=== PATIENT | male | born 1950 | race Caucasian/White ===

== ENCOUNTER 2018-02-27 07:52 | Emergency (ER) | payer MEDICARE, OTHER ==
[~2018-02-27] VITALS: Ht 175.3 cm; Wt 59.0 kg
[2018-02-27] MEDS ORDERED: CARV3 PO (08:34)
[2018-02-27] MEDS ORDERED: AMLO-511 PO (08:34)
[2018-02-27] MEDS ORDERED: KETOROLAC TROMETHAMINE 60 MG/2 ML VIAL IM ONE (10:30)
[2018-02-27 11:35] VITALS: BP 152/80
== END 2018-02-27 12:43 | disposition home or self-care (01) ==
LOC: EMS 07:53
DX: S70.01XA Contusion of right hip, initial encounter (principal); I10 Essential (primary) hypertension; F12.90 Cannabis use, unspecified, uncomplicated; W19.XXXA Unspecified fall, initial encounter; Y93.89 Activity, other specified; Y92.89 Other specified places as the place of occurrence of the external cause; Y99.8 Other external cause status
CPT/HCPCS: 73521; 96372; 99283; J1885

== ENCOUNTER 2024-03-18 10:35 | Inpatient (IN) | payer MEDICARE, MEDICAID ==
[~2024-03-18] VITALS: Ht 172.7 cm; Wt 61.1 kg
[~2024-03-18 10:35] MED LIST: AMLO-257 PO; CARV3 PO
[2024-03-18] MEDS: AMIODARONE HCL 50 MG/ML 3 ML VIAL IVP ONE (10:58)
[2024-03-18 11:11] LABS: HEMATOCRIT 33.6 % (41-53); HEMOGLOBIN 10.4 g/dL (13.5-17.5); MEAN CORPUSCULAR HEMOGLOBIN 27.6 pg (26.0-34.0); MEAN CORPUSCULAR HGB CONC 30.9 G/dL (31.0-37.0); MEAN CORPUSCULAR VOLUME 89 fL (80-100); PLATELET COUNT (AUTO) 570 K/uL (150-450); RED BLOOD CELL COUNT(AUTO) 3.76 MIL/uL (4.50-5.90); RED CELL DISTRIBUTION WIDTH 17.1 % (11.5-14.5)
[2024-03-18 11:19] LABS: CALCIUM, TOTAL 8.8 mg/dL (8.8-10.5); CREATININE 2.15 mg/dL (0.60-1.30); POTASSIUM 3.6 mmol/L (3.5-5.1)
[2024-03-18 11:23] LABS: WHITE BLOOD COUNT (AUTO) 42.7 K/uL (4.5-11.0)
[2024-03-18 11:30] LABS: TROPONIN I-HIGH SENSITIVITY 14 ng/L (<76)
[2024-03-18] MEDS: AMIODARONE HCL 360 MG in DEXTROSE 5%-WATER 242.8 ML IV ONE (11:31)
[2024-03-18 12:10] LABS: BAND NEUTROPHILS % (MANUAL) 3 % (0-5); LYMPHOCYTES % (MANUAL) 2 % (22-44); MONOCYTES % (MANUAL) 4 % (2-9); SEGMENTED NEUTROPHILS % 91 % (40-70); TOTAL CELLS COUNTED 100
[2024-03-18 12:11] LABS: RBC MORPHOLOGY COMMENT ABNORMAL R
[2024-03-18] MEDS: VANCOMYCIN 1.5 GM/WATER(PEG) 300 ML IV ONE (12:40)
[2024-03-18] MEDS ORDERED: ZOLPIDEM TARTRATE 5 MG TABLET PO PRN (16:00)
[2024-03-18] MEDS ORDERED: MAGNESIUM HYDROXIDE SUSPENSION 30 ML UDCUP PO PRN (16:00)
[2024-03-18] MEDS ORDERED: ONDANSETRON HCL 4 MG/2 ML VIAL IVP PRN (16:00)
[2024-03-18] MEDS ORDERED: BISACODYL 10 MG RECTAL RECTAL SUPPOSITORY PR PRN (16:00)
[2024-03-18] MEDS: SODIUM CHLORIDE 0.9% 2,100 ML IV ONE (16:24)
[2024-03-18] MEDS: HEPARIN SODIUM,PORCINE 5,000 UNITS/ML VIAL SQ SCH (16:24)
[2024-03-18 16:53] LABS: PROTHROMBIN TIME 13.9 SEC (9.4-11.6)
[2024-03-18 16:55] LABS: ALBUMIN 1.8 g/dL (3.4-5.0); BILIRUBIN,DIRECT 0.4 mg/dL (0.00-0.20); BILIRUBIN,TOTAL 0.8 mg/dL (0.1-1.0); TOTAL PROTEIN, SERUM 8.2 g/dL (6.4-8.2)
[2024-03-18 17:00] LABS: LACTIC ACID 1.2 mmol/L (0.4-2.0)
[2024-03-18] MEDS: PIPERACILLIN/TAZO 3.375 GM/D5W 50 ML IV ONE (17:04)
[2024-03-18] MEDS: MORPHINE SULFATE 2 MG/ML SYRINGE IVP PRN (17:04)
[2024-03-18] MEDS: CLINDAMYCIN 900 MG/D5% WATER 50 ML IV SCH (17:07)
[2024-03-18] MEDS: AMIODARONE HCL 540 MG in DEXTROSE 5%-WATER 239.2 ML IV ONE (17:15)
[2024-03-18] MEDS: HYDROCODONE/ACETAMINOPHEN 5-325 MG TABLET PO PRN (17:38)
[2024-03-18] MEDS: SODIUM CHLORIDE 0.9% 500 ML IV ONE ×2 (18:35→19:30)
[2024-03-18] MEDS: PHENYLEPHRINE 200 MG/D5%-WATER 250 ML IV PRN (19:13)
[2024-03-18] MEDS ORDERED: METOPROLOL TARTRATE 25 MG TABLET PO SCH (21:00)
[2024-03-19] VITALS (8 sets, daily range): BP systolic 92–102; BP diastolic 53–63; PULSE 54–115; RESP 12–16; TEMP 97.6–98.1; O2SAT 91–98
[2024-03-19] MEDS: PIPERACILLIN SODIUM/TAZOBACTAM 2.25 GM in DEXTROSE 5%-WATER 50 ML IV SCH (00:34)
[2024-03-19] MEDS ORDERED: SODIUM CHLORIDE 0.9% 250 ML IV ONE (00:40)
[2024-03-19 07:06] LABS: HEMATOCRIT 25.7 % (41-53); HEMOGLOBIN 8.2 g/dL (13.5-17.5); MEAN CORPUSCULAR HEMOGLOBIN 28.3 pg (26.0-34.0); MEAN CORPUSCULAR HGB CONC 31.7 G/dL (31.0-37.0); MEAN CORPUSCULAR VOLUME 89 fL (80-100); PLATELET COUNT (AUTO) 609 K/uL (150-450); RED BLOOD CELL COUNT(AUTO) 2.88 MIL/uL (4.50-5.90); RED CELL DISTRIBUTION WIDTH 17.2 % (11.5-14.5)
[2024-03-19 07:14] LABS: TROPONIN I-HIGH SENSITIVITY 14 ng/L (<76)
[2024-03-19 07:19] LABS: CALCIUM, TOTAL 7.3 mg/dL (8.8-10.5); CREATININE 2.05 mg/dL (0.60-1.30); POTASSIUM 3.5 mmol/L (3.5-5.1); THYROID STIMULATING HORMONE 1.05 uIU/mL (0.36-3.74)
[2024-03-19 07:27] LABS: WHITE BLOOD COUNT (AUTO) 46.7 K/uL (4.5-11.0)
[2024-03-19 08:08] LABS: BAND NEUTROPHILS % (MANUAL) 12 % (0-5); EOSINOPHILS % (MANUAL) 2 % (1-6); LYMPHOCYTES % (MANUAL) 3 % (22-44); MONOCYTES % (MANUAL) 4 % (2-9); SEGMENTED NEUTROPHILS % 79 % (40-70); TOTAL CELLS COUNTED 100
[2024-03-19 08:10] LABS: RBC MORPHOLOGY COMMENT ABNORMAL RBC MORPH
[2024-03-19 08:11] LABS: PLATELET MORPHOLOGY COMMENT LARGE PLTS PRESENT
[2024-03-19] MEDS: PANTOPRAZOLE SODIUM 40 MG DR TABLET PO SCH (08:23)
[2024-03-19] MEDS: VANCOMYCIN HCL 750 MG in DEXTROSE 5%-WATER 250 ML IV SCH (08:23)
[2024-03-19] MEDS: SODIUM CHLORIDE 0.9% 1,000 ML IV SCH (08:42)
[2024-03-19] MEDS: MIDODRINE HCL 5 MG TABLET PO SCH (09:11)
[2024-03-19] MEDS ORDERED: HEPARIN SODIUM,PORCINE 5,000 UNITS/ML VIAL IVP PRN (09:15)
[2024-03-19 10:16] LABS: BASOPHILS % (AUTO) 0.2 % (0.0-2.0); EOSINOPHILS % (AUTO) 0.4 % (1.0-6.0); HEMOGLOBIN 9.3 g/dL (13.5-17.5); LYMPHOCYTES # (AUTO) 0.8 K/uL (1.0-4.8); LYMPHOCYTES % (AUTO) 1.9 % (22.0-44.0); MEAN CORPUSCULAR HEMOGLOBIN 28.3 pg (26.0-34.0); MEAN CORPUSCULAR VOLUME 91 fL (80-100); MONOCYTES # (AUTO) 1.9 K/uL (0.1-1.0); MONOCYTES % (AUTO) 4.3 % (2.0-9.0); NEUTROPHILS # (AUTO) 41.3 K/uL (1.8-7.7); PLATELET COUNT (AUTO) 632 K/uL (150-450); RED BLOOD CELL COUNT(AUTO) 3.28 MIL/uL (4.50-5.90); RED CELL DISTRIBUTION WIDTH 17.8 % (11.5-14.5)
[2024-03-19 10:21] LABS: NEUTROPHILS % (AUTO) 93.2 % (40.0-70.0); WHITE BLOOD COUNT (AUTO) 44.3 K/uL (4.5-11.0)
[2024-03-19] MEDS: HEPARIN SODIUM 25000 UNITS/D5W 250 ML IV PRN (10:22)
[2024-03-19 10:28] LABS: APPEARANCE,URINE HAZY (CLEAR); BILIRUBIN,URINE NEGATIVE (NEGATIVE); COLOR,URINE YELLOW (YELLOW); GLUCOSE, URINE (UA) NEGATIVE (NEGATIVE); KETONES,URINE NEGATIVE (NEGATIVE); LEUKOCYTE ESTERASE ,URINE NEGATIVE (NEGATIVE); NITRATE,URINE NEGATIVE (NEGATIVE); OCCULT BLOOD,URINE NEGATIVE (NEGATIVE); PH,URINE 5.5 (5.0-8.0); PROTEIN,URINE 30-70 mg/dL (NEGATIVE)
[2024-03-19] MEDS: AMIODARONE HCL 750 MG in DEXTROSE 5%-WATER 485 ML IV SCH (11:50)
[2024-03-19] MEDS ORDERED: SODIUM CHLORIDE 0.9% 1,000 ML IV SCH (13:00)
[2024-03-19] MEDS: ALBUMIN HUMAN 25%-25GM/100ML 100 ML IV SCH (14:02)
[2024-03-19 14:57] LABS: APPEARANCE,URINE HAZY (CLEAR); BILIRUBIN,URINE NEGATIVE (NEGATIVE); COLOR,URINE YELLOW (YELLOW); GLUCOSE, URINE (UA) NEGATIVE (NEGATIVE); KETONES,URINE NEGATIVE (NEGATIVE); LEUKOCYTE ESTERASE ,URINE SMALL (NEGATIVE); NITRATE,URINE NEGATIVE (NEGATIVE); OCCULT BLOOD,URINE TRACE (NEGATIVE); PROTEIN,URINE 30-70 mg/dL (NEGATIVE)
[2024-03-19 14:59] LABS: CREATININE,URINE RANDOM 149.8 mg/dL (30.0-125.0)
[2024-03-19 15:13] LABS: BACTERIA,URINE Few /HPF (None Seen); SQUAMOUS EPITHELIAL CELL,UR Few /LPF (None Seen)
[2024-03-19] MEDS: TAMSULOSIN HCL 0.4 MG CAPSULE PO SCH (17:00)
[2024-03-19] MEDS: PredniSONE 20 MG TABLET PO SCH (17:20)
[2024-03-19] MEDS: HEPARIN SODIUM,PORCINE 5,000 UNITS/ML VIAL IVP PRN (17:22)
[2024-03-19] MEDS: AMIODARONE HCL 200 MG TABLET PO SCH (21:14)
[2024-03-20] VITALS (9 sets, daily range): BP systolic 98–118; BP diastolic 54–73; PULSE 55–77; RESP 10–18; TEMP 97.5–97.9; O2SAT 93–99
[2024-03-20 06:15] LABS: HEMATOCRIT 23.5 % (41-53); HEMOGLOBIN 7.4 g/dL (13.5-17.5); MEAN CORPUSCULAR HEMOGLOBIN 28.4 pg (26.0-34.0); MEAN CORPUSCULAR HGB CONC 31.5 G/dL (31.0-37.0); MEAN CORPUSCULAR VOLUME 90 fL (80-100); PLATELET COUNT (AUTO) 385 K/uL (150-450); RED BLOOD CELL COUNT(AUTO) 2.61 MIL/uL (4.50-5.90); RED CELL DISTRIBUTION WIDTH 17.7 % (11.5-14.5); WHITE BLOOD COUNT (AUTO) 27.2 K/uL (4.5-11.0)
[2024-03-20 06:36] LABS: ALBUMIN 2.2 g/dL (3.4-5.0); BILIRUBIN,TOTAL 1.6 mg/dL (0.1-1.0); CALCIUM, TOTAL 7.2 mg/dL (8.8-10.5); CREATININE 2.71 mg/dL (0.60-1.30); MAGNESIUM 1.3 mg/dL (1.80-2.40); POTASSIUM 3.9 mmol/L (3.5-5.1); TOTAL PROTEIN, SERUM 6.7 g/dL (6.4-8.2)
[2024-03-20 07:01] LABS: BAND NEUTROPHILS % (MANUAL) 7 % (0-5); LYMPHOCYTES % (MANUAL) 2 % (22-44); MONOCYTES % (MANUAL) 4 % (2-9); SEGMENTED NEUTROPHILS % 87 % (40-70); TOTAL CELLS COUNTED 100
[2024-03-20] MEDS: VANCOMYCIN 500 MG/WATER(PEG) 100 ML IV SCH (08:18)
[2024-03-20] MEDS: ETHYL ALCOHOL 62% ANTISEPTIC NASAL SANITIZER 0.6 ML AMPUL NASAL SCH (08:18)
[2024-03-20] MEDS: AMIODARONE HCL 200 MG TABLET PO SCH (08:19)
[2024-03-20] MEDS: HEPARIN SODIUM,PORCINE 5,000 UNITS/ML VIAL SQ SCH (16:29)
[2024-03-20 18:27] LABS: TROPONIN I-HIGH SENSITIVITY 20 ng/L (<76)
[2024-03-21] VITALS (14 sets, daily range): BP systolic 129–150; BP diastolic 66–86; PULSE 62–72; RESP 12–24; TEMP 97.7–98.2; O2SAT 93–98
[2024-03-21 06:00] LABS: ALANINE AMINOTRANSFERASE 23 U/L (12-78); ALKALINE PHOSPHATASE 510 U/L (46-116); ANION GAP 22 mmol/L (8-16); ASPARTATE AMINOTRANSFERASE 58 U/L (15-37); BILIRUBIN,TOTAL 1.7 mg/dL (0.1-1.0); CALCIUM, TOTAL 7.6 mg/dL (8.8-10.5); CARBON DIOXIDE 16 mmol/L (22-29); CHLORIDE 99 mmol/L (98-107); CREATININE 3.31 mg/dL (0.60-1.30); GLOMERULAR FILTR. RATE CALC 18 mL/min (>60); GLUCOSE,RANDOM 136 mg/dL (70-110); POTASSIUM 3.8 mmol/L (3.5-5.1); SODIUM SERUM 137 mmol/L (136-145); TOTAL PROTEIN, SERUM 7.4 g/dL (6.4-8.2); UREA NITROGEN, BLOOD 64 mg/dL (7-18)
[2024-03-21 06:01] LABS: TROPONIN I-HIGH SENSITIVITY 30 ng/L (<76)
[2024-03-21 06:07] LABS: BASOPHILS % (AUTO) 0.2 % (0.0-2.0); EOSINOPHILS % (AUTO) 0 % (1.0-6.0); HEMATOCRIT 21.9 % (41-53); LYMPHOCYTES # (AUTO) 0.3 K/uL (1.0-4.8); MEAN CORPUSCULAR HEMOGLOBIN 27.9 pg (26.0-34.0); MEAN CORPUSCULAR HGB CONC 31.1 G/dL (31.0-37.0); MEAN CORPUSCULAR VOLUME 90 fL (80-100); MONOCYTES # (AUTO) 0.7 K/uL (0.1-1.0); MONOCYTES % (AUTO) 4.3 % (2.0-9.0); NEUTROPHILS # (AUTO) 15.9 K/uL (1.8-7.7); PLATELET COUNT (AUTO) 366 K/uL (150-450); RED BLOOD CELL COUNT(AUTO) 2.44 MIL/uL (4.50-5.90); RED CELL DISTRIBUTION WIDTH 18.4 % (11.5-14.5)
[2024-03-21 06:08] LABS: NEUTROPHILS % (AUTO) 93.5 % (40.0-70.0)
[2024-03-21 06:09] LABS: HEMOGLOBIN 6.8 g/dL (13.5-17.5)
[2024-03-21 06:30] LABS: C-REACTIVE PROTEIN QUANT 18.33 mg/dL (0.00-0.30); PHOSPHORUS 7.2 mg/dL (2.5-4.9)
[2024-03-21 06:35] LABS: VANCOMYCIN,RANDOM 19.6 mcg/mL (25.0-50.0)
[2024-03-21] MEDS ORDERED: VANCOMYCIN 1GM/WATER(PEG/NADA) 200 ML IV PRN (07:30)
[2024-03-21] MEDS: DOCUSATE SODIUM 100 MG CAPSULE PO SCH (13:10)
[2024-03-21] MEDS: SODIUM BICARBONATE 650 MG TABLET PO SCH (15:43)
[2024-03-21 16:03] LABS: BASOPHILS % (AUTO) 0.3 % (0.0-2.0); EOSINOPHILS % (AUTO) 0 % (1.0-6.0); HEMATOCRIT 25.9 % (41-53); HEMOGLOBIN 8.3 g/dL (13.5-17.5); LYMPHOCYTES # (AUTO) 0.3 K/uL (1.0-4.8); LYMPHOCYTES % (AUTO) 2.2 % (22.0-44.0); MEAN CORPUSCULAR HEMOGLOBIN 29.2 pg (26.0-34.0); MEAN CORPUSCULAR HGB CONC 32.2 G/dL (31.0-37.0); MEAN CORPUSCULAR VOLUME 91 fL (80-100); MONOCYTES # (AUTO) 0.8 K/uL (0.1-1.0); NEUTROPHILS # (AUTO) 14.7 K/uL (1.8-7.7); PLATELET COUNT (AUTO) 378 K/uL (150-450); RED BLOOD CELL COUNT(AUTO) 2.85 MIL/uL (4.50-5.90); RED CELL DISTRIBUTION WIDTH 17.3 % (11.5-14.5); WHITE BLOOD COUNT (AUTO) 15.9 K/uL (4.5-11.0)
[2024-03-21 16:04] LABS: NEUTROPHILS % (AUTO) 92.5 % (40.0-70.0)
[2024-03-21] MEDS: MORPHINE SULFATE 2 MG/ML SYRINGE IVP PRN (16:31)
[2024-03-21] MEDS: SEVELAMER CARBONATE 800 MG TABLET PO SCH (17:18)
[2024-03-22] VITALS (8 sets, daily range): BP systolic 143–191; BP diastolic 69–93; PULSE 69–80; RESP 17–22; TEMP 97.4–98; O2SAT 95–99
[2024-03-22 06:11] LABS: C-REACTIVE PROTEIN QUANT 11.41 mg/dL (0.00-0.30); CALCIUM, TOTAL 7.8 mg/dL (8.8-10.5); CREATININE 2.82 mg/dL (0.60-1.30)
[2024-03-22] MEDS: DAPTOMYCIN 500 MG in SODIUM CHLORIDE 0.9% 50 ML IV SCH (09:00)
[2024-03-22] MEDS ORDERED: TAMS0.4C94 PO (17:23)
[2024-03-22] MEDS ORDERED: AMLO10TA55 PO (17:23)
[2024-03-22] MEDS ORDERED: COLC-3 PO (17:23)
[2024-03-22] MEDS ORDERED: LORA10TA7 PO (17:23)
[2024-03-23] VITALS (7 sets, daily range): BP systolic 148–173; BP diastolic 76–91; PULSE 72–76; RESP 18–19; TEMP 97.2–97.9; O2SAT 98–100
[2024-03-23 07:06] LABS: HEMATOCRIT 27.5 % (41-53); HEMOGLOBIN 8.9 g/dL (13.5-17.5); MEAN CORPUSCULAR HEMOGLOBIN 28.8 pg (26.0-34.0); MEAN CORPUSCULAR HGB CONC 32.5 G/dL (31.0-37.0); MEAN CORPUSCULAR VOLUME 89 fL (80-100); PLATELET COUNT (AUTO) 405 K/uL (150-450); RED CELL DISTRIBUTION WIDTH 17.4 % (11.5-14.5); WHITE BLOOD COUNT (AUTO) 17.3 K/uL (4.5-11.0)
[2024-03-23 07:33] LABS: MAGNESIUM 1.7 mg/dL (1.80-2.40); PHOSPHORUS 4.5 mg/dL (2.5-4.9)
[2024-03-23 07:34] LABS: CALCIUM, TOTAL 8.2 mg/dL (8.8-10.5); CREATININE 1.87 mg/dL (0.60-1.30); POTASSIUM 3.8 mmol/L (3.5-5.1)
[2024-03-23 09:07] LABS: BAND NEUTROPHILS % (MANUAL) 0 % (0-5)
[2024-03-23 09:08] LABS: LYMPHOCYTES % (MANUAL) 2 % (22-44); METAMYELOCYTES % 1 % (0-0); MONOCYTES % (MANUAL) 4 % (2-9); MYELOCYTES % 2 % (0-0); SEGMENTED NEUTROPHILS % 91 % (40-70); TOTAL CELLS COUNTED 100
[2024-03-23] MEDS: MAGNESIUM SULFATE 2 GM/WATER 50 ML IV ONE (13:06)
[2024-03-23] MEDS: DAPTOMYCIN 500 MG in SODIUM CHLORIDE 0.9% 50 ML IV SCH (15:59)
[2024-03-23] MEDS: APIXABAN 5 MG TABLET PO SCH (21:15)
[2024-03-23] MEDS: CloNIDine HCL 0.1 MG TABLET PO PRN (21:50)
[2024-03-24 04:51] VITALS: BP 161/86; PULSE 71; RESP 19; TEMP 97.6; O2SAT 100
[2024-03-24 07:49] LABS: ALBUMIN 2.2 g/dL (3.4-5.0); BILIRUBIN,TOTAL 0.8 mg/dL (0.1-1.0); CALCIUM, TOTAL 8.5 mg/dL (8.8-10.5); CREATININE 1.51 mg/dL (0.60-1.30); MAGNESIUM 2.5 mg/dL (1.80-2.40); PHOSPHORUS 3.6 mg/dL (2.5-4.9); POTASSIUM 4.9 mmol/L (3.5-5.1); TOTAL PROTEIN, SERUM 7.2 g/dL (6.4-8.2)
[2024-03-24 08:22] VITALS: BP 157/85; PULSE 70; RESP 18; TEMP 98; O2SAT 98
[2024-03-24 11:39] VITALS: BP 160/76; PULSE 75; RESP 18; TEMP 98.1; O2SAT 97
[2024-03-24 15:26] VITALS: BP 150/78; PULSE 78; RESP 17; TEMP 98; O2SAT 96
[2024-03-24 20:15] VITALS: BP 144/78; PULSE 72; RESP 18; TEMP 97.8; O2SAT 100
[2024-03-24 23:30] VITALS: BP 151/85; PULSE 74; RESP 18; TEMP 97.8; O2SAT 99
[2024-03-25] VITALS (7 sets, daily range): BP systolic 142–185; BP diastolic 71–99; PULSE 74–98; RESP 18–19; TEMP 97.6–100.2; O2SAT 96–100
[2024-03-25 07:41] LABS: CALCIUM, TOTAL 8.9 mg/dL (8.8-10.5); CREATININE 1.2 mg/dL (0.60-1.30)
[2024-03-25 08:00] LABS: HEMATOCRIT 35.4 % (41-53); HEMOGLOBIN 11.3 g/dL (13.5-17.5); MEAN CORPUSCULAR HEMOGLOBIN 28.7 pg (26.0-34.0); MEAN CORPUSCULAR HGB CONC 31.9 G/dL (31.0-37.0); MEAN CORPUSCULAR VOLUME 90 fL (80-100); PLATELET COUNT (AUTO) 493 K/uL (150-450); RED BLOOD CELL COUNT(AUTO) 3.93 MIL/uL (4.50-5.90); RED CELL DISTRIBUTION WIDTH 17.8 % (11.5-14.5); WHITE BLOOD COUNT (AUTO) 21.8 K/uL (4.5-11.0)
[2024-03-25 08:01] LABS: PHOSPHORUS 2.4 mg/dL (2.5-4.9)
[2024-03-25 09:07] LABS: BAND NEUTROPHILS % (MANUAL) 1 % (0-5); EOSINOPHILS % (MANUAL) 1 % (1-6); LYMPHOCYTES % (MANUAL) 10 % (22-44); METAMYELOCYTES % 2 % (0-0); MONOCYTES % (MANUAL) 8 % (2-9); SEGMENTED NEUTROPHILS % 78 % (40-70); TOTAL CELLS COUNTED 100
[2024-03-25 09:08] LABS: RBC MORPHOLOGY COMMENT NORMAL RBC MORPH
[2024-03-25] MEDS: METOPROLOL SUCCINATE 50 MG ER TABLET PO SCH (12:04)
[2024-03-25] MEDS: PIPERACILLIN/TAZO 3.375 GM/D5W 50 ML IV SCH (14:31)
[2024-03-26] VITALS: BP 142/79; PULSE 74; RESP 18; TEMP 98.3; O2SAT 97
[2024-03-26 04:00] VITALS: BP 147/65; PULSE 70; RESP 17; TEMP 98; O2SAT 97
[2024-03-26 06:53] LABS: BASOPHILS % (AUTO) 0.1 % (0.0-2.0); EOSINOPHILS % (AUTO) 1.9 % (1.0-6.0); HEMATOCRIT 28.2 % (41-53); HEMOGLOBIN 9.1 g/dL (13.5-17.5); LYMPHOCYTES # (AUTO) 0.9 K/uL (1.0-4.8); MEAN CORPUSCULAR HEMOGLOBIN 28.9 pg (26.0-34.0); MEAN CORPUSCULAR HGB CONC 32.4 G/dL (31.0-37.0); MEAN CORPUSCULAR VOLUME 89 fL (80-100); MONOCYTES # (AUTO) 1.1 K/uL (0.1-1.0); MONOCYTES % (AUTO) 6.5 % (2.0-9.0); PLATELET COUNT (AUTO) 350 K/uL (150-450); RED BLOOD CELL COUNT(AUTO) 3.16 MIL/uL (4.50-5.90); RED CELL DISTRIBUTION WIDTH 17.5 % (11.5-14.5); WHITE BLOOD COUNT (AUTO) 17.3 K/uL (4.5-11.0)
[2024-03-26 07:07] LABS: NEUTROPHILS % (AUTO) 86.5 % (40.0-70.0)
[2024-03-26 08:42] VITALS: BP 133/62; PULSE 70; RESP 17; TEMP 98.6; O2SAT 100
[2024-03-26 12:45] VITALS: BP 148/77; PULSE 70; RESP 17; TEMP 98.4; O2SAT 95
[2024-03-26 16:36] VITALS: BP 147/75; PULSE 67; RESP 18; TEMP 98.4; O2SAT 97
[2024-03-26 19:58] VITALS: BP 129/62; PULSE 71; RESP 17; TEMP 97.7; O2SAT 96
[2024-03-27 00:36] VITALS: BP 109/50; PULSE 72; RESP 17; TEMP 98; O2SAT 93
[2024-03-27 04:00] VITALS: BP 135/69; PULSE 69; RESP 17; TEMP 97.7; O2SAT 94
[2024-03-27 09:12] LABS: HEMATOCRIT 29.3 % (41-53); HEMOGLOBIN 9.6 g/dL (13.5-17.5); MEAN CORPUSCULAR HEMOGLOBIN 29.5 pg (26.0-34.0); MEAN CORPUSCULAR HGB CONC 32.9 G/dL (31.0-37.0); MEAN CORPUSCULAR VOLUME 90 fL (80-100); PLATELET COUNT (AUTO) 354 K/uL (150-450); RED BLOOD CELL COUNT(AUTO) 3.25 MIL/uL (4.50-5.90); RED CELL DISTRIBUTION WIDTH 17.3 % (11.5-14.5); WHITE BLOOD COUNT (AUTO) 17.6 K/uL (4.5-11.0)
[2024-03-27 09:48] LABS: ANION GAP 7 mmol/L (8-16); CALCIUM, TOTAL 7.8 mg/dL (8.8-10.5); CARBON DIOXIDE 26 mmol/L (22-29); CHLORIDE 105 mmol/L (98-107); CREATININE 1.12 mg/dL (0.60-1.30); GLOMERULAR FILTR. RATE CALC > 60 mL/min (>60); GLUCOSE,RANDOM 117 mg/dL (70-110); POTASSIUM 3.8 mmol/L (3.5-5.1); SODIUM SERUM 138 mmol/L (136-145); UREA NITROGEN, BLOOD 18 mg/dL (7-18)
[2024-03-27 10:08] LABS: BAND NEUTROPHILS % (MANUAL) 2 % (0-5); LYMPHOCYTES % (MANUAL) 15 % (22-44); METAMYELOCYTES % 2 % (0-0); MONOCYTES % (MANUAL) 3 % (2-9); RBC MORPHOLOGY COMMENT NORMAL RBC MORPH; SEGMENTED NEUTROPHILS % 78 % (40-70); TOTAL CELLS COUNTED 100
[2024-03-27 11:35] VITALS: BP 126/66; PULSE 76; RESP 18; TEMP 97.6; O2SAT 93
[2024-03-27 17:32] VITALS: BP 129/72; PULSE 65; RESP 18; TEMP 97.3; O2SAT 94
[2024-03-27 19:44] VITALS: BP 127/60; PULSE 67; RESP 18; TEMP 97.6; O2SAT 96
[2024-03-27 23:36] VITALS: BP 137/69; PULSE 69; RESP 18; TEMP 98.2; O2SAT 96
[2024-03-28 04:09] VITALS: BP 158/86; PULSE 74; RESP 18; TEMP 98.2; O2SAT 93
[2024-03-28 04:26] VITALS: BP 147/70; PULSE 74; RESP 17; TEMP 98; O2SAT 95
[2024-03-28 07:21] VITALS: BP 148/69; PULSE 71; RESP 19; TEMP 98.2; O2SAT 96
[2024-03-28 07:29] LABS: BASOPHILS % (AUTO) 0.8 % (0.0-2.0); EOSINOPHILS % (AUTO) 4.9 % (1.0-6.0); HEMATOCRIT 26.6 % (41-53); HEMOGLOBIN 8.8 g/dL (13.5-17.5); LYMPHOCYTES # (AUTO) 0.6 K/uL (1.0-4.8); LYMPHOCYTES % (AUTO) 4.7 % (22.0-44.0); MEAN CORPUSCULAR HEMOGLOBIN 29.5 pg (26.0-34.0); MEAN CORPUSCULAR VOLUME 89 fL (80-100); MONOCYTES # (AUTO) 0.8 K/uL (0.1-1.0); MONOCYTES % (AUTO) 6.1 % (2.0-9.0); NEUTROPHILS # (AUTO) 11.3 K/uL (1.8-7.7); NEUTROPHILS % (AUTO) 83.5 % (40.0-70.0); PLATELET COUNT (AUTO) 314 K/uL (150-450); RED BLOOD CELL COUNT(AUTO) 2.98 MIL/uL (4.50-5.90); RED CELL DISTRIBUTION WIDTH 17.2 % (11.5-14.5); WHITE BLOOD COUNT (AUTO) 13.6 K/uL (4.5-11.0)
[2024-03-28 07:55] LABS: ANION GAP 7 mmol/L (8-16); C-REACTIVE PROTEIN QUANT 10.48 mg/dL (0.00-0.30); CALCIUM, TOTAL 7.8 mg/dL (8.8-10.5); CARBON DIOXIDE 27 mmol/L (22-29); CHLORIDE 104 mmol/L (98-107); CREATININE 1.06 mg/dL (0.60-1.30); GLOMERULAR FILTR. RATE CALC > 60 mL/min (>60); GLUCOSE,RANDOM 88 mg/dL (70-110); POTASSIUM 4.7 mmol/L (3.5-5.1); SODIUM SERUM 138 mmol/L (136-145); UREA NITROGEN, BLOOD 14 mg/dL (7-18)
[2024-03-28 11:10] LABS: SPECIMENTYPE,BODY FLUID SYNOVIAL
[2024-03-28 11:29] VITALS: BP 138/72; PULSE 76; RESP 19; TEMP 98.9; O2SAT 94
[2024-03-28 13:26] LABS: APPEARANCE,SPUN,BODY FLUID CLEAR (CLEAR); APPEARANCE,UNSPUN,BODY FLUID BLOODY (CLEAR); COLOR,BODY FLUID RED (LT YELLOW); TOTAL VOLUME,BODY FLUID 3 mL; WBC, BODY FLUID 2525 /cu. mm.
[2024-03-28 13:27] LABS: BASOPHILS,BODY FLUID 0 %; EOSINOPHILS,BF (ANAL) 0 %; LYMPHOCYTES,BODY FLUID 9 %; MONOCYTES,BODY FLUID 0 %; NEUTROPHILS,BODY FLUID 91 %; OTHER CELLS,BODY FLUID 0
[2024-03-28 13:28] LABS: CRYSTALS, SYNOVIAL FLUID None Seen (None Seen)
[2024-03-28 15:23] VITALS: BP 123/71; PULSE 69; RESP 20; TEMP 98.5; O2SAT 96
[2024-03-28 20:00] VITALS: BP 137/67; PULSE 77; RESP 19; TEMP 98.6; O2SAT 96
[2024-03-29] VITALS (7 sets, daily range): BP systolic 133–149; BP diastolic 65–77; PULSE 68–72; RESP 18–19; TEMP 97.7–100.2; O2SAT 95–97
[2024-03-30 00:52] VITALS: BP 126/52; PULSE 70; RESP 18; TEMP 99; O2SAT 96
[2024-03-30 03:05] VITALS: BP 114/53; PULSE 66; RESP 18; TEMP 99.1; O2SAT 97
[2024-03-30 07:53] LABS: BASOPHILS % (AUTO) 0.7 % (0.0-2.0); EOSINOPHILS % (AUTO) 4.5 % (1.0-6.0); HEMATOCRIT 26.4 % (41-53); HEMOGLOBIN 8.8 g/dL (13.5-17.5); LYMPHOCYTES # (AUTO) 0.6 K/uL (1.0-4.8); LYMPHOCYTES % (AUTO) 6.1 % (22.0-44.0); MEAN CORPUSCULAR HEMOGLOBIN 29.6 pg (26.0-34.0); MEAN CORPUSCULAR HGB CONC 33.3 G/dL (31.0-37.0); MEAN CORPUSCULAR VOLUME 89 fL (80-100); MONOCYTES # (AUTO) 1.4 K/uL (0.1-1.0); MONOCYTES % (AUTO) 13.1 % (2.0-9.0); NEUTROPHILS % (AUTO) 75.6 % (40.0-70.0); PLATELET COUNT (AUTO) 313 K/uL (150-450); RED BLOOD CELL COUNT(AUTO) 2.97 MIL/uL (4.50-5.90); WHITE BLOOD COUNT (AUTO) 10.6 K/uL (4.5-11.0)
[2024-03-30 08:06] LABS: ALANINE AMINOTRANSFERASE 14 U/L (12-78); ALBUMIN 1.9 g/dL (3.4-5.0); ALKALINE PHOSPHATASE 173 U/L (46-116); ANION GAP 6 mmol/L (8-16); ASPARTATE AMINOTRANSFERASE 20 U/L (15-37); C-REACTIVE PROTEIN QUANT 13.01 mg/dL (0.00-0.30); CALCIUM, TOTAL 7.8 mg/dL (8.8-10.5); CARBON DIOXIDE 28 mmol/L (22-29); CHLORIDE 98 mmol/L (98-107); CREATININE 1.06 mg/dL (0.60-1.30); GLOMERULAR FILTR. RATE CALC > 60 mL/min (>60); GLUCOSE,RANDOM 84 mg/dL (70-110); POTASSIUM 4.8 mmol/L (3.5-5.1); SODIUM SERUM 132 mmol/L (136-145); TOTAL PROTEIN, SERUM 6.4 g/dL (6.4-8.2); UREA NITROGEN, BLOOD 12 mg/dL (7-18)
[2024-03-30 08:20] VITALS: BP 119/62; PULSE 69; RESP 18; TEMP 98.9; O2SAT 92; O2SAT 97
[2024-03-30 11:41] VITALS: BP 129/60; PULSE 70; RESP 18; TEMP 98.8; O2SAT 98
[2024-03-30 16:16] VITALS: BP 121/55; PULSE 74; RESP 18; TEMP 98.3; O2SAT 95
[2024-03-30] MEDS: DiphenhydrAMINE HCL 50 MG/ML VIAL IVP ONE (16:27)
[2024-03-30 20:00] VITALS: BP 116/55; PULSE 67; RESP 18; TEMP 98.1; O2SAT 98
[2024-03-30] MEDS ORDERED: SODIUM CHLORIDE 0.9% 500 ML IV ONE (20:45)
[2024-03-31] MEDS: LORazepam 1 MG TABLET PO ONE ×2 (02:22→20:05)
[2024-03-31 04:42] VITALS: BP 136/65; PULSE 76; RESP 19; TEMP 98.9; O2SAT 98
[2024-03-31 07:55] LABS: C-REACTIVE PROTEIN QUANT 14.26 mg/dL (0.00-0.30); CALCIUM, TOTAL 7.9 mg/dL (8.8-10.5); CREATININE 1.23 mg/dL (0.60-1.30); POTASSIUM 4.4 mmol/L (3.5-5.1)
[2024-03-31 09:57] VITALS: BP 141/67; PULSE 73; RESP 20; TEMP 98.1; O2SAT 97
[2024-03-31] MEDS: DiphenhydrAMINE HCL 25 MG CAPSULE PO PRN (14:43)
[2024-03-31 17:00] VITALS: BP 140/73; PULSE 71; RESP 20; TEMP 97.9; O2SAT 98
[2024-03-31] MEDS: ACETAMINOPHEN 325 MG TABLET PO PRN (23:51)
[2024-04-01] VITALS (7 sets, daily range): BP systolic 112–150; BP diastolic 53–99; PULSE 64–91; RESP 18–20; TEMP 97.8–102.5; O2SAT 95–96
[2024-04-01 01:16] LABS: TROPONIN I-HIGH SENSITIVITY 17 ng/L (<76)
[2024-04-01 01:41] LABS: C.DIFF GDH ANTIGEN, Stool Negative (Negative); C.DIFF TOXINS A&B, Stool Negative (Negative)
[2024-04-01 08:57] LABS: BASOPHILS % (AUTO) 0.6 % (0.0-2.0); EOSINOPHILS % (AUTO) 1.5 % (1.0-6.0); HEMOGLOBIN 7.8 g/dL (13.5-17.5); LYMPHOCYTES # (AUTO) 0.6 K/uL (1.0-4.8); LYMPHOCYTES % (AUTO) 4.4 % (22.0-44.0); MEAN CORPUSCULAR HEMOGLOBIN 29.1 pg (26.0-34.0); MEAN CORPUSCULAR HGB CONC 32.6 G/dL (31.0-37.0); MEAN CORPUSCULAR VOLUME 90 fL (80-100); NEUTROPHILS # (AUTO) 10.3 K/uL (1.8-7.7); NEUTROPHILS % (AUTO) 78.5 % (40.0-70.0); PLATELET COUNT (AUTO) 328 K/uL (150-450); RED BLOOD CELL COUNT(AUTO) 2.68 MIL/uL (4.50-5.90); RED CELL DISTRIBUTION WIDTH 16.9 % (11.5-14.5); WHITE BLOOD COUNT (AUTO) 13.2 K/uL (4.5-11.0)
[2024-04-01 09:14] LABS: C-REACTIVE PROTEIN QUANT 16.74 mg/dL (0.00-0.30); CALCIUM, TOTAL 7.9 mg/dL (8.8-10.5); CREATININE 1.34 mg/dL (0.60-1.30)
[2024-04-01 12:29] LABS: COVID AG,FIA SOURCE NASAL SWAB
[2024-04-01 13:17] LABS: SARS-COV2 (COVID) ANTIGEN,FIA Negative (Negative)
[2024-04-01 13:18] LABS: INFLUENZA TYPE A NEGATIVE FOR TYPE A (NEGATIVE); INFLUENZA TYPE B NEGATIVE FOR TYPE B (NEGATIVE)
[2024-04-01] MEDS: LORazepam 1 MG TABLET PO PRN (14:46)
[2024-04-01 17:43] LABS: APPEARANCE,URINE HAZY (CLEAR); BILIRUBIN,URINE NEGATIVE (NEGATIVE); COLOR,URINE LIGHT ORANGE (YELLOW); GLUCOSE, URINE (UA) NEGATIVE (NEGATIVE); KETONES,URINE NEGATIVE (NEGATIVE); LEUKOCYTE ESTERASE ,URINE NEGATIVE (NEGATIVE); NITRATE,URINE NEGATIVE (NEGATIVE); OCCULT BLOOD,URINE LARGE (NEGATIVE); PH,URINE 5.5 (5.0-8.0); PROTEIN,URINE 30-70 mg/dL (NEGATIVE); SPECIFIC GRAVITIY, URINE 1.031 (1.003-1.030); UROBILINOGEN,URINE <=1.0 mg/dL (<=1.0)
[2024-04-01] MEDS: SODIUM CHLORIDE 0.9% 1,000 ML IV ONE (18:13)
[2024-04-01 18:17] LABS: BACTERIA,URINE Few /HPF (None Seen); RBC,URINE 26-50 /HPF (0-2); WBC,URINE 0-2 /HPF (0-5)
[2024-04-01 18:46] LABS: INFLUENZA A-RTPCR,COMBO NEGATIVE (NEGATIVE); INFLUENZA B-RTPCR,COMBO NEGATIVE (NEGATIVE); RESPIRATORY SYNCYTIAL VRS-PCR NEGATIVE (NEGATIVE); SARS COVID19 RTPCR, COMBO NEGATIVE (NEGATIVE)
[2024-04-02] VITALS (17 sets, daily range): BP systolic 115–144; BP diastolic 44–69; PULSE 66–88; RESP 16–20; TEMP 97.9–100.4; O2SAT 97–98
[2024-04-02 06:13] LABS: BASOPHILS % (AUTO) 0.8 % (0.0-2.0); EOSINOPHILS % (AUTO) 2.4 % (1.0-6.0); LYMPHOCYTES # (AUTO) 0.5 K/uL (1.0-4.8); LYMPHOCYTES % (AUTO) 5.3 % (22.0-44.0); MEAN CORPUSCULAR HEMOGLOBIN 29.5 pg (26.0-34.0); MEAN CORPUSCULAR HGB CONC 32.8 G/dL (31.0-37.0); MEAN CORPUSCULAR VOLUME 90 fL (80-100); MONOCYTES # (AUTO) 1.2 K/uL (0.1-1.0); MONOCYTES % (AUTO) 12.1 % (2.0-9.0); NEUTROPHILS # (AUTO) 7.9 K/uL (1.8-7.7); NEUTROPHILS % (AUTO) 79.4 % (40.0-70.0); PLATELET COUNT (AUTO) 288 K/uL (150-450); RED BLOOD CELL COUNT(AUTO) 2.13 MIL/uL (4.50-5.90)
[2024-04-02 06:20] LABS: ANION GAP 10 mmol/L (8-16); CARBON DIOXIDE 23 mmol/L (22-29); CHLORIDE 101 mmol/L (98-107); POTASSIUM 3.7 mmol/L (3.5-5.1); SODIUM SERUM 134 mmol/L (136-145)
[2024-04-02 06:27] LABS: HEMATOCRIT 19.1 % (41-53); HEMOGLOBIN 6.3 g/dL (13.5-17.5)
[2024-04-02 06:33] LABS: ALBUMIN 1.7 g/dL (3.4-5.0); CALCIUM, TOTAL 7.7 mg/dL (8.8-10.5); CREATININE 1.17 mg/dL (0.60-1.30); GLOMERULAR FILTR. RATE CALC > 60 mL/min (>60); GLUCOSE,RANDOM 92 mg/dL (70-110); UREA NITROGEN, BLOOD 14 mg/dL (7-18)
[2024-04-02 06:43] LABS: ALANINE AMINOTRANSFERASE 13 U/L (12-78); ALKALINE PHOSPHATASE 132 U/L (46-116); ASPARTATE AMINOTRANSFERASE 22 U/L (15-37); BILIRUBIN,TOTAL 0.8 mg/dL (0.1-1.0); C-REACTIVE PROTEIN QUANT 16.04 mg/dL (0.00-0.30); TOTAL PROTEIN, SERUM 6.1 g/dL (6.4-8.2)
[2024-04-02] MEDS: PANTOPRAZOLE SODIUM 80 MG in SODIUM CHLORIDE 0.9% 100 ML IV SCH (16:37)
[2024-04-02 18:47] LABS: PROTHROMBIN TIME 14.3 SEC (9.4-11.6)
[2024-04-03] VITALS (35 sets, daily range): BP systolic 112–158; BP diastolic 50–87; PULSE 69–104; RESP 18–20; TEMP 97.2–102.9; O2SAT 95–98
[2024-04-03] MEDS ORDERED: SODIUM CHLORIDE 0.9% 500 ML IV ONE ×2 (00:18→05:41)
[2024-04-03 01:22] LABS: HEMATOCRIT 18.1 % (41-53)
[2024-04-03 08:01] LABS: BASOPHILS % (AUTO) 0.9 % (0.0-2.0); LYMPHOCYTES # (AUTO) 0.5 K/uL (1.0-4.8); LYMPHOCYTES % (AUTO) 5.8 % (22.0-44.0); MEAN CORPUSCULAR HEMOGLOBIN 29.7 pg (26.0-34.0); MEAN CORPUSCULAR HGB CONC 33.3 G/dL (31.0-37.0); MEAN CORPUSCULAR VOLUME 89 fL (80-100); NEUTROPHILS # (AUTO) 6.6 K/uL (1.8-7.7); NEUTROPHILS % (AUTO) 78.3 % (40.0-70.0); PLATELET COUNT (AUTO) 255 K/uL (150-450); RED BLOOD CELL COUNT(AUTO) 2.02 MIL/uL (4.50-5.90); RED CELL DISTRIBUTION WIDTH 16.1 % (11.5-14.5); WHITE BLOOD COUNT (AUTO) 8.5 K/uL (4.5-11.0)
[2024-04-03 08:19] LABS: ALANINE AMINOTRANSFERASE 13 U/L (12-78); ALKALINE PHOSPHATASE 128 U/L (46-116); ANION GAP 12 mmol/L (8-16); ASPARTATE AMINOTRANSFERASE 22 U/L (15-37); BILIRUBIN,TOTAL 1.2 mg/dL (0.1-1.0); C-REACTIVE PROTEIN QUANT 14.89 mg/dL (0.00-0.30); CARBON DIOXIDE 21 mmol/L (22-29); CHLORIDE 103 mmol/L (98-107); CREATININE 0.98 mg/dL (0.60-1.30); GLOMERULAR FILTR. RATE CALC > 60 mL/min (>60); GLUCOSE,RANDOM 80 mg/dL (70-110); POTASSIUM 3.5 mmol/L (3.5-5.1); SODIUM SERUM 136 mmol/L (136-145); TOTAL PROTEIN, SERUM 6.6 g/dL (6.4-8.2); UREA NITROGEN, BLOOD 11 mg/dL (7-18)
[2024-04-03 14:10] LABS: HEMATOCRIT 20.3 % (41-53); HEMOGLOBIN 6.7 g/dL (13.5-17.5)
[2024-04-03] MEDS ORDERED: SODIUM CHLORIDE 0.9% 250 ML IV ONE (14:40)
[2024-04-03 21:18] LABS: HEMATOCRIT 25.2 % (41-53); HEMOGLOBIN 8.2 g/dL (13.5-17.5)
[2024-04-04 00:05] VITALS: BP 150/67; PULSE 75; RESP 16; TEMP 98.7; O2SAT 95
[2024-04-04 04:15] VITALS: BP 136/58; PULSE 64; RESP 18; TEMP 99; O2SAT 96
[2024-04-04 06:53] LABS: BASOPHILS % (AUTO) 1.1 % (0.0-2.0); EOSINOPHILS % (AUTO) 4.6 % (1.0-6.0); HEMATOCRIT 24.6 % (41-53); HEMOGLOBIN 8.4 g/dL (13.5-17.5); LYMPHOCYTES # (AUTO) 0.6 K/uL (1.0-4.8); LYMPHOCYTES % (AUTO) 9.2 % (22.0-44.0); MEAN CORPUSCULAR HEMOGLOBIN 30.4 pg (26.0-34.0); MEAN CORPUSCULAR HGB CONC 34.3 G/dL (31.0-37.0); MEAN CORPUSCULAR VOLUME 89 fL (80-100); MONOCYTES # (AUTO) 0.9 K/uL (0.1-1.0); MONOCYTES % (AUTO) 13.5 % (2.0-9.0); NEUTROPHILS % (AUTO) 71.6 % (40.0-70.0); PLATELET COUNT (AUTO) 261 K/uL (150-450); RED BLOOD CELL COUNT(AUTO) 2.77 MIL/uL (4.50-5.90); RED CELL DISTRIBUTION WIDTH 15.7 % (11.5-14.5)
[2024-04-04 07:11] LABS: ANION GAP 13 mmol/L (8-16); C-REACTIVE PROTEIN QUANT 17.62 mg/dL (0.00-0.30); CALCIUM, TOTAL 7.8 mg/dL (8.8-10.5); CARBON DIOXIDE 23 mmol/L (22-29); CHLORIDE 103 mmol/L (98-107); CREATININE 0.95 mg/dL (0.60-1.30); GLOMERULAR FILTR. RATE CALC > 60 mL/min (>60); GLUCOSE,RANDOM 77 mg/dL (70-110); POTASSIUM 3.1 mmol/L (3.5-5.1); SODIUM SERUM 139 mmol/L (136-145); UREA NITROGEN, BLOOD 10 mg/dL (7-18)
[2024-04-04 07:40] VITALS: BP 141/67; PULSE 69; RESP 16; TEMP 99; O2SAT 98
[2024-04-04] MEDS ORDERED: SODIUM CHLORIDE 0.9% 0 ML ONE (10:33)
[2024-04-04 11:48] VITALS: BP 138/61; PULSE 60; RESP 18; TEMP 97.5; O2SAT 97
[2024-04-04] MEDS ORDERED: GLYCOPYRROLATE 0.2 MG/ML VIAL IM ONE (12:00)
[2024-04-04] MEDS ORDERED: LIDOCAINE/PF 2% 5 ML VIAL IM ONE (12:00)
[2024-04-04] MEDS ORDERED: PROPOFOL 1% 20 ML VIAL IVP ONE (12:00)
[2024-04-04] MEDS ORDERED: SODIUM CHLORIDE 0.9% 500 ML IV ONE (12:01)
[2024-04-04] MEDS: POTASSIUM CHLORIDE 20 MEQ ER TABLET PO PRN (12:29)
[2024-04-04] MEDS: SODIUM CHLORIDE 0.9% 1,000 ML IV ONE (12:30)
[2024-04-04] MEDS ORDERED: GADOTERATE MEGLUMINE 10 MMOL/20 ML VIAL IVP ONE (13:29)
[2024-04-04] MEDS ORDERED: DiphenhydrAMINE HCL 50 MG/ML VIAL ONE (14:04)
[2024-04-04] MEDS ORDERED: SODIUM TETRADECYL SULFATE 3% 60 MG/2 ML VIAL IVP ONE (14:04)
[2024-04-04] MEDS ORDERED: FLUMAZENIL 0.1 MG/ML 5 ML VIAL IVP ONE (14:04)
[2024-04-04] MEDS ORDERED: EPINEPHrine 1:10,000 [1 MG/10 ML] SYRINGE ONE (14:04)
[2024-04-04] MEDS ORDERED: NALOXONE HCL 0.4 MG/ML VIAL ONE (14:04)
[2024-04-04] MEDS ORDERED: ATROPINE SULFATE 0.1 MG/ML 10 ML SYRINGE IVP ONE (14:04)
[2024-04-04 15:56] VITALS: BP 134/70; PULSE 85; RESP 18; TEMP 98.3; O2SAT 97
[2024-04-04 18:27] LABS: HEMATOCRIT 24.2 % (41-53); HEMOGLOBIN 8.1 g/dL (13.5-17.5)
[2024-04-04 20:00] VITALS: BP 157/76; PULSE 87; RESP 19; TEMP 98.3; O2SAT 97
[2024-04-04 21:17] LABS: HEMATOCRIT 24.6 % (41-53); HEMOGLOBIN 8.2 g/dL (13.5-17.5)
[2024-04-05] VITALS (7 sets, daily range): BP systolic 120–156; BP diastolic 60–92; PULSE 62–75; RESP 16–19; TEMP 97.4–99.3; O2SAT 95–98
[2024-04-05 07:10] LABS: BASOPHILS % (AUTO) 0.7 % (0.0-2.0); EOSINOPHILS % (AUTO) 7.5 % (1.0-6.0); HEMATOCRIT 24.1 % (41-53); HEMOGLOBIN 8.1 g/dL (13.5-17.5); LYMPHOCYTES # (AUTO) 0.6 K/uL (1.0-4.8); LYMPHOCYTES % (AUTO) 8.4 % (22.0-44.0); MEAN CORPUSCULAR HEMOGLOBIN 30.3 pg (26.0-34.0); MEAN CORPUSCULAR HGB CONC 33.7 G/dL (31.0-37.0); MEAN CORPUSCULAR VOLUME 90 fL (80-100); MONOCYTES # (AUTO) 0.7 K/uL (0.1-1.0); MONOCYTES % (AUTO) 11.1 % (2.0-9.0); NEUTROPHILS # (AUTO) 4.8 K/uL (1.8-7.7); NEUTROPHILS % (AUTO) 72.3 % (40.0-70.0); PLATELET COUNT (AUTO) 260 K/uL (150-450); RED BLOOD CELL COUNT(AUTO) 2.67 MIL/uL (4.50-5.90); WHITE BLOOD COUNT (AUTO) 6.6 K/uL (4.5-11.0)
[2024-04-05 07:26] LABS: ANION GAP 13 mmol/L (8-16); C-REACTIVE PROTEIN QUANT 16.44 mg/dL (0.00-0.30); CALCIUM, TOTAL 7.6 mg/dL (8.8-10.5); CARBON DIOXIDE 21 mmol/L (22-29); CHLORIDE 107 mmol/L (98-107); CREATININE 0.84 mg/dL (0.60-1.30); GLOMERULAR FILTR. RATE CALC > 60 mL/min (>60); GLUCOSE,RANDOM 75 mg/dL (70-110); SODIUM SERUM 141 mmol/L (136-145); UREA NITROGEN, BLOOD 7 mg/dL (7-18)
[2024-04-05] MEDS: LORazepam 2 MG/ML VIAL IVP PRN (14:51)
[2024-04-05 15:39] LABS: HEMATOCRIT 25.8 % (41-53); HEMOGLOBIN 8.4 g/dL (13.5-17.5)
[2024-04-05] MEDS: PANTOPRAZOLE SODIUM 40 MG/VIAL IVP SCH (21:36)
[2024-04-05 22:13] LABS: HEMATOCRIT 25.6 % (41-53); HEMOGLOBIN 8.4 g/dL (13.5-17.5)
[2024-04-06 00:28] LABS: HEMATOCRIT 25.4 % (41-53); HEMOGLOBIN 8.5 g/dL (13.5-17.5)
[2024-04-06 00:33] VITALS: BP 127/60; PULSE 61; RESP 18; TEMP 97.6; O2SAT 96
[2024-04-06 05:02] VITALS: BP 151/70; PULSE 73; RESP 18; TEMP 98; O2SAT 96
[2024-04-06 06:22] LABS: ALANINE AMINOTRANSFERASE 9 U/L (12-78); ALBUMIN 1.6 g/dL (3.4-5.0); ALKALINE PHOSPHATASE 125 U/L (46-116); ANION GAP 7 mmol/L (8-16); ASPARTATE AMINOTRANSFERASE 18 U/L (15-37); BILIRUBIN,TOTAL 0.6 mg/dL (0.1-1.0); C-REACTIVE PROTEIN QUANT 13.84 mg/dL (0.00-0.30); CALCIUM, TOTAL 7.8 mg/dL (8.8-10.5); CARBON DIOXIDE 27 mmol/L (22-29); CHLORIDE 107 mmol/L (98-107); CREATININE 0.88 mg/dL (0.60-1.30); GLOMERULAR FILTR. RATE CALC > 60 mL/min (>60); GLUCOSE,RANDOM 115 mg/dL (70-110); POTASSIUM 3.6 mmol/L (3.5-5.1); SODIUM SERUM 141 mmol/L (136-145); TOTAL PROTEIN, SERUM 6.3 g/dL (6.4-8.2); UREA NITROGEN, BLOOD 6 mg/dL (7-18)
[2024-04-06 06:23] LABS: HEMATOCRIT 25.2 % (41-53); HEMOGLOBIN 8.5 g/dL (13.5-17.5)
[2024-04-06 08:13] VITALS: BP 157/60; PULSE 69; RESP 18; TEMP 98; O2SAT 95
[2024-04-06] MEDS ORDERED: SODIUM CHLORIDE 0.9% 500 ML IV ONE (14:04)
[2024-04-06 16:05] VITALS: BP 139/62; PULSE 66; RESP 18; TEMP 98; O2SAT 96
[2024-04-06 19:56] VITALS: BP 123/50; PULSE 65; RESP 18; TEMP 98.3; O2SAT 96
[2024-04-07 04:35] VITALS: BP 147/68; PULSE 75; RESP 18; TEMP 98.3; O2SAT 95
[2024-04-07 07:42] LABS: HEMATOCRIT 25.7 % (41-53); HEMOGLOBIN 8.6 g/dL (13.5-17.5); LYMPHOCYTES # (AUTO) 0.7 K/uL (1.0-4.8); LYMPHOCYTES % (AUTO) 10.6 % (22.0-44.0); MEAN CORPUSCULAR HGB CONC 33.6 G/dL (31.0-37.0); MEAN CORPUSCULAR VOLUME 89 fL (80-100); MONOCYTES # (AUTO) 0.7 K/uL (0.1-1.0); MONOCYTES % (AUTO) 10.3 % (2.0-9.0); NEUTROPHILS # (AUTO) 3.8 K/uL (1.8-7.7); NEUTROPHILS % (AUTO) 59.1 % (40.0-70.0); PLATELET COUNT (AUTO) 354 K/uL (150-450); RED BLOOD CELL COUNT(AUTO) 2.87 MIL/uL (4.50-5.90); WHITE BLOOD COUNT (AUTO) 6.5 K/uL (4.5-11.0)
[2024-04-07 07:54] LABS: ANION GAP 9 mmol/L (8-16); C-REACTIVE PROTEIN QUANT 11.06 mg/dL (0.00-0.30); CALCIUM, TOTAL 7.8 mg/dL (8.8-10.5); CARBON DIOXIDE 26 mmol/L (22-29); CHLORIDE 108 mmol/L (98-107); CREATININE 0.94 mg/dL (0.60-1.30); GLOMERULAR FILTR. RATE CALC > 60 mL/min (>60); GLUCOSE,RANDOM 86 mg/dL (70-110); POTASSIUM 3.6 mmol/L (3.5-5.1); SODIUM SERUM 143 mmol/L (136-145); UREA NITROGEN, BLOOD 6 mg/dL (7-18)
[2024-04-07 08:29] VITALS: BP 138/67; PULSE 77; RESP 18; TEMP 98.2; O2SAT 96
[2024-04-07 21:03] VITALS: BP 134/72; PULSE 74; RESP 19; TEMP 97.9; O2SAT 96
[2024-04-08 05:12] VITALS: BP 133/57; PULSE 66; RESP 18; TEMP 98.2; O2SAT 95
[2024-04-08 08:15] VITALS: BP 142/73; PULSE 68; RESP 18; TEMP 98.2; O2SAT 97
[2024-04-08 20:11] VITALS: BP 119/58; PULSE 65; RESP 18; TEMP 97.5; O2SAT 97
[2024-04-09 05:06] VITALS: BP 147/72; PULSE 77; RESP 20; TEMP 98.3; O2SAT 96
[2024-04-09 07:36] VITALS: BP 148/64; PULSE 73; RESP 18; TEMP 98.3; O2SAT 98
[2024-04-09 07:44] LABS: HEMATOCRIT 27.5 % (41-53); HEMOGLOBIN 9.3 g/dL (13.5-17.5); MEAN CORPUSCULAR HEMOGLOBIN 30.3 pg (26.0-34.0); MEAN CORPUSCULAR HGB CONC 33.9 G/dL (31.0-37.0); MEAN CORPUSCULAR VOLUME 90 fL (80-100); PLATELET COUNT (AUTO) 476 K/uL (150-450); RED BLOOD CELL COUNT(AUTO) 3.07 MIL/uL (4.50-5.90); RED CELL DISTRIBUTION WIDTH 15.8 % (11.5-14.5); WHITE BLOOD COUNT (AUTO) 6.1 K/uL (4.5-11.0)
[2024-04-09 07:51] LABS: PROTHROMBIN TIME 14.6 SEC (9.4-11.6)
[2024-04-09 08:03] LABS: ALANINE AMINOTRANSFERASE 11 U/L (12-78); ALBUMIN 1.6 g/dL (3.4-5.0); ALKALINE PHOSPHATASE 130 U/L (46-116); ANION GAP 11 mmol/L (8-16); ASPARTATE AMINOTRANSFERASE 24 U/L (15-37); BILIRUBIN,TOTAL 0.7 mg/dL (0.1-1.0); C-REACTIVE PROTEIN QUANT 10.37 mg/dL (0.00-0.30); CALCIUM, TOTAL 7.9 mg/dL (8.8-10.5); CARBON DIOXIDE 27 mmol/L (22-29); CHLORIDE 105 mmol/L (98-107); CREATININE 1.05 mg/dL (0.60-1.30); GLOMERULAR FILTR. RATE CALC > 60 mL/min (>60); GLUCOSE,RANDOM 93 mg/dL (70-110); POTASSIUM 3.6 mmol/L (3.5-5.1); SODIUM SERUM 143 mmol/L (136-145); TOTAL PROTEIN, SERUM 6.5 g/dL (6.4-8.2); UREA NITROGEN, BLOOD 7 mg/dL (7-18)
[2024-04-09] MEDS ORDERED: MIDAZOLAM HCL 2 MG/2 ML VIAL ONE (09:28)
[2024-04-09] MEDS ORDERED: FentaNYL CITRATE PF 100 MCG/2 ML VIAL ONE (09:28)
[2024-04-09] MEDS ORDERED: LIDOCAINE/PF 1% 30 ML VIAL ONE (09:29)
[2024-04-09 09:50] LABS: BAND NEUTROPHILS % (MANUAL) 0 % (0-5)
[2024-04-09 09:51] LABS: EOSINOPHILS % (MANUAL) 18 % (1-6); LYMPHOCYTES % (MANUAL) 13 % (22-44); MONOCYTES % (MANUAL) 11 % (2-9); SEGMENTED NEUTROPHILS % 58 % (40-70); TOTAL CELLS COUNTED 100
[2024-04-09 15:44] VITALS: BP 134/64; PULSE 86; RESP 18; TEMP 98.4; O2SAT 93
[2024-04-09 20:54] VITALS: BP 145/65; PULSE 72; RESP 18; TEMP 98.5; O2SAT 96
[2024-04-10 05:23] VITALS: BP 134/56; PULSE 64; RESP 18; TEMP 97.8; O2SAT 98
[2024-04-10 08:22] VITALS: BP 130/66; PULSE 68; RESP 18; TEMP 97.9; O2SAT 96
[2024-04-10] MEDS ORDERED: SODIUM CHLORIDE 0.9% 500 ML IV ONE (09:45)
[2024-04-10] MEDS: PIPERONYL BUTOXIDE/PYRETHRINS 120 ML SHAMPOO TP ONE (14:01)
[2024-04-10 19:44] VITALS: BP 121/59; PULSE 62; RESP 17; TEMP 97.7; O2SAT 96
[2024-04-11 04:52] VITALS: BP 133/63; PULSE 66; RESP 18; TEMP 97.6; O2SAT 96
[2024-04-11 07:27] LABS: BASOPHILS % (AUTO) 0.8 % (0.0-2.0); HEMATOCRIT 25.5 % (41-53); HEMOGLOBIN 8.6 g/dL (13.5-17.5); LYMPHOCYTES # (AUTO) 0.8 K/uL (1.0-4.8); LYMPHOCYTES % (AUTO) 10.6 % (22.0-44.0); MEAN CORPUSCULAR HEMOGLOBIN 30.2 pg (26.0-34.0); MEAN CORPUSCULAR HGB CONC 33.6 G/dL (31.0-37.0); MEAN CORPUSCULAR VOLUME 90 fL (80-100); MONOCYTES # (AUTO) 1.1 K/uL (0.1-1.0); MONOCYTES % (AUTO) 13.5 % (2.0-9.0); NEUTROPHILS # (AUTO) 4.2 K/uL (1.8-7.7); NEUTROPHILS % (AUTO) 52.3 % (40.0-70.0); PLATELET COUNT (AUTO) 547 K/uL (150-450); RED BLOOD CELL COUNT(AUTO) 2.84 MIL/uL (4.50-5.90); RED CELL DISTRIBUTION WIDTH 16.4 % (11.5-14.5)
[2024-04-11 07:28] LABS: EOSINOPHILS % (AUTO) 22.8 % (1.0-6.0)
[2024-04-11 07:41] LABS: ALANINE AMINOTRANSFERASE 12 U/L (12-78); ALBUMIN 1.5 g/dL (3.4-5.0); ALKALINE PHOSPHATASE 131 U/L (46-116); ANION GAP 7 mmol/L (8-16); ASPARTATE AMINOTRANSFERASE 30 U/L (15-37); BILIRUBIN,TOTAL 0.5 mg/dL (0.1-1.0); C-REACTIVE PROTEIN QUANT 9.14 mg/dL (0.00-0.30); CALCIUM, TOTAL 7.6 mg/dL (8.8-10.5); CARBON DIOXIDE 29 mmol/L (22-29); CHLORIDE 106 mmol/L (98-107); CREATININE 1.16 mg/dL (0.60-1.30); GLOMERULAR FILTR. RATE CALC > 60 mL/min (>60); GLUCOSE,RANDOM 80 mg/dL (70-110); POTASSIUM 3.6 mmol/L (3.5-5.1); SODIUM SERUM 142 mmol/L (136-145); TOTAL PROTEIN, SERUM 6.2 g/dL (6.4-8.2); UREA NITROGEN, BLOOD 7 mg/dL (7-18)
[2024-04-11 07:43] VITALS: BP 136/58; PULSE 65; RESP 18; TEMP 98.3; O2SAT 97
[2024-04-11 15:25] VITALS: BP 136/62; PULSE 72; RESP 18; TEMP 98.3; O2SAT 96
[2024-04-11 20:08] VITALS: BP 100/57; PULSE 67; RESP 18; TEMP 97.9; O2SAT 97
[2024-04-12 05:45] VITALS: BP 134/58; PULSE 67; RESP 18; TEMP 98.1; O2SAT 96
[2024-04-12 07:07] LABS: HEMATOCRIT 26.2 % (41-53); HEMOGLOBIN 8.6 g/dL (13.5-17.5); LYMPHOCYTES % (AUTO) 14.6 % (22.0-44.0); MEAN CORPUSCULAR HEMOGLOBIN 29.6 pg (26.0-34.0); MEAN CORPUSCULAR VOLUME 90 fL (80-100); MONOCYTES # (AUTO) 1.1 K/uL (0.1-1.0); MONOCYTES % (AUTO) 15.7 % (2.0-9.0); NEUTROPHILS # (AUTO) 3.4 K/uL (1.8-7.7); NEUTROPHILS % (AUTO) 49.9 % (40.0-70.0); PLATELET COUNT (AUTO) 536 K/uL (150-450); RED BLOOD CELL COUNT(AUTO) 2.91 MIL/uL (4.50-5.90); RED CELL DISTRIBUTION WIDTH 16.3 % (11.5-14.5); WHITE BLOOD COUNT (AUTO) 6.9 K/uL (4.5-11.0)
[2024-04-12 07:27] LABS: EOSINOPHILS % (AUTO) 18.8 % (1.0-6.0)
[2024-04-12 07:59] VITALS: BP 138/66; PULSE 61; RESP 18; TEMP 98.6; O2SAT 95
[2024-04-12] MEDS ORDERED: SODIUM CHLORIDE 0.9% 250 ML IV ONE (08:00)
[2024-04-12 19:35] VITALS: BP 117/55; PULSE 72; RESP 18; TEMP 99.1; O2SAT 94
[2024-04-13] MEDS ORDERED: SODIUM CHLORIDE 0.9% 500 ML IV ONE (00:51)
[2024-04-13 02:34] VITALS: BP 136/54; PULSE 73; RESP 18; TEMP 98.1; O2SAT 96
[2024-04-13 07:36] VITALS: BP 138/60; PULSE 71; RESP 18; TEMP 97.9; O2SAT 95
[2024-04-13 19:25] VITALS: BP 153/62; PULSE 81; RESP 20; TEMP 99.9; O2SAT 95
[2024-04-14 06:05] VITALS: BP 135/54; PULSE 78; RESP 17; TEMP 98.5; O2SAT 93
[2024-04-14 07:38] VITALS: BP 121/54; PULSE 65; RESP 18; TEMP 99.5; O2SAT 93
[2024-04-14] MEDS ORDERED: SODIUM CHLORIDE 0.9% 250 ML IV ONE (14:31)
[2024-04-14 16:17] VITALS: BP 102/46; PULSE 76; RESP 18; TEMP 99.7; O2SAT 93
[2024-04-14 20:16] VITALS: BP 123/54; PULSE 80; RESP 18; TEMP 99.5; O2SAT 96
[2024-04-14] MEDS: PIPERONYL BUTOXIDE/PYRETHRINS 120 ML SHAMPOO TP ONE (20:52)
[2024-04-15 04:45] VITALS: BP 121/54; PULSE 59; RESP 18; TEMP 98.4; O2SAT 92
[2024-04-15 07:51] VITALS: BP 129/67; PULSE 79; RESP 20; TEMP 100.1; O2SAT 84
[2024-04-15 10:27] VITALS: TEMP 98.8; O2SAT 94
[2024-04-15 10:30] LABS: BASOPHILS % (AUTO) 0.9 % (0.0-2.0); EOSINOPHILS % (AUTO) 3.6 % (1.0-6.0); HEMATOCRIT 24.7 % (41-53); LYMPHOCYTES # (AUTO) 0.9 K/uL (1.0-4.8); LYMPHOCYTES % (AUTO) 10.7 % (22.0-44.0); MEAN CORPUSCULAR HEMOGLOBIN 29.2 pg (26.0-34.0); MEAN CORPUSCULAR HGB CONC 32.3 G/dL (31.0-37.0); MEAN CORPUSCULAR VOLUME 91 fL (80-100); MONOCYTES % (AUTO) 11.6 % (2.0-9.0); NEUTROPHILS % (AUTO) 73.2 % (40.0-70.0); PLATELET COUNT (AUTO) 377 K/uL (150-450); RED BLOOD CELL COUNT(AUTO) 2.73 MIL/uL (4.50-5.90); RED CELL DISTRIBUTION WIDTH 17.3 % (11.5-14.5); WHITE BLOOD COUNT (AUTO) 8.2 K/uL (4.5-11.0)
[2024-04-15 11:00] LABS: C-REACTIVE PROTEIN QUANT 13.24 mg/dL (0.00-0.30); CALCIUM, TOTAL 7.6 mg/dL (8.8-10.5); CREATININE 1.55 mg/dL (0.60-1.30); POTASSIUM 3.5 mmol/L (3.5-5.1)
[2024-04-15] MEDS: PIPERONYL BUTOXIDE/PYRETHRINS 120 ML SHAMPOO TP ONE (12:28)
[2024-04-15 15:41] VITALS: BP 121/48; PULSE 85; RESP 18; TEMP 100.5; O2SAT 95
[2024-04-15 18:26] VITALS: TEMP 98.1
[2024-04-15 19:49] LABS: APPEARANCE,URINE CLEAR (CLEAR); COLOR,URINE YELLOW (YELLOW); GLUCOSE, URINE (UA) NEGATIVE (NEGATIVE); KETONES,URINE TRACE mg/dL (NEGATIVE); LEUKOCYTE ESTERASE ,URINE NEGATIVE (NEGATIVE); NITRATE,URINE NEGATIVE (NEGATIVE); OCCULT BLOOD,URINE NEGATIVE (NEGATIVE); PH,URINE 5.5 (5.0-8.0); PROTEIN,URINE 30-70 mg/dL (NEGATIVE); SPECIFIC GRAVITIY, URINE 1.028 (1.003-1.030)
[2024-04-15 19:52] LABS: BILIRUBIN,URINE SMALL (NEGATIVE)
[2024-04-15 19:57] LABS: BACTERIA,URINE Few /HPF (None Seen); HYALINE CASTS, URINE 0-2 /LPF (None Seen); RBC,URINE 0-2 /HPF (0-2); SQUAMOUS EPITHELIAL CELL,UR Rare /LPF (None Seen); WBC,URINE 0-2 /HPF (0-5)
[2024-04-15 20:10] VITALS: BP 98/58; PULSE 63; RESP 18; TEMP 98.6; O2SAT 94
[2024-04-15] MEDS ORDERED: SODIUM CHLORIDE 0.9% 250 ML IV ONE (20:24)
[2024-04-16 04:00] VITALS: BP 116/54; PULSE 66; RESP 20; TEMP 97.8; O2SAT 95
[2024-04-16 09:40] VITALS: BP 144/70; PULSE 80; RESP 20; TEMP 98.4; O2SAT 92
[2024-04-16] MEDS: SODIUM CHLORIDE 0.9% 1,000 ML IV ONE (13:27)
[2024-04-16 17:09] VITALS: BP 105/63; PULSE 66; RESP 18; TEMP 97.7; O2SAT 95
[2024-04-16] MEDS: IVERMECTIN 3 MG TABLET PO ONE (17:32)
[2024-04-16 18:29] LABS: INFLUENZA B-RTPCR,COMBO NEGATIVE (NEGATIVE); RESPIRATORY SYNCYTIAL VRS-PCR NEGATIVE (NEGATIVE); SARS COVID19 RTPCR, COMBO NEGATIVE (NEGATIVE)
[2024-04-16 18:52] LABS: INFLUENZA A-RTPCR,COMBO POSITIVE (NEGATIVE)
[2024-04-16 20:20] VITALS: BP 122/56; PULSE 65; RESP 18; TEMP 97.7; O2SAT 95
[2024-04-17 04:41] VITALS: BP 112/58; PULSE 62; RESP 18; TEMP 97.5; O2SAT 98
[2024-04-17 07:28] LABS: BASOPHILS % (AUTO) 0.9 % (0.0-2.0); EOSINOPHILS % (AUTO) 7.6 % (1.0-6.0); HEMATOCRIT 26.2 % (41-53); HEMOGLOBIN 8.6 g/dL (13.5-17.5); LYMPHOCYTES # (AUTO) 0.9 K/uL (1.0-4.8); LYMPHOCYTES % (AUTO) 12.1 % (22.0-44.0); MEAN CORPUSCULAR HEMOGLOBIN 29.7 pg (26.0-34.0); MEAN CORPUSCULAR HGB CONC 32.7 G/dL (31.0-37.0); MEAN CORPUSCULAR VOLUME 91 fL (80-100); MONOCYTES # (AUTO) 0.7 K/uL (0.1-1.0); MONOCYTES % (AUTO) 9.3 % (2.0-9.0); NEUTROPHILS # (AUTO) 5.1 K/uL (1.8-7.7); NEUTROPHILS % (AUTO) 70.1 % (40.0-70.0); PLATELET COUNT (AUTO) 335 K/uL (150-450); RED BLOOD CELL COUNT(AUTO) 2.88 MIL/uL (4.50-5.90); RED CELL DISTRIBUTION WIDTH 17.2 % (11.5-14.5); WHITE BLOOD COUNT (AUTO) 7.2 K/uL (4.5-11.0)
[2024-04-17] MEDS: PANTOPRAZOLE SODIUM 40 MG DR TABLET PO SCH (08:04)
[2024-04-17 08:05] LABS: ALBUMIN 1.3 g/dL (3.4-5.0); BILIRUBIN,TOTAL 0.5 mg/dL (0.1-1.0); C-REACTIVE PROTEIN QUANT 15.05 mg/dL (0.00-0.30); CALCIUM, TOTAL 7.5 mg/dL (8.8-10.5); CREATININE 1.72 mg/dL (0.60-1.30); POTASSIUM 3.6 mmol/L (3.5-5.1)
[2024-04-17 08:28] VITALS: BP 130/53; RESP 18; O2SAT 95
[2024-04-17] MEDS: SODIUM CHLORIDE 0.9% 1,000 ML IV ONE (12:09)
[2024-04-17 13:08] LABS: CALCIUM, TOTAL 7.6 mg/dL (8.8-10.5); CREATININE 1.81 mg/dL (0.60-1.30)
[2024-04-17] MEDS: PIPERACILLIN SODIUM/TAZOBACTAM 2.25 GM in DEXTROSE 5%-WATER 50 ML IV SCH (13:09)
[2024-04-17 15:58] VITALS: BP 125/85; PULSE 78; RESP 18; TEMP 99; O2SAT 96
[2024-04-17] MEDS: IVERMECTIN 3 MG TABLET PO ONE (16:13)
[2024-04-17 19:46] VITALS: BP 135/57; PULSE 86; RESP 18; TEMP 99.2; O2SAT 97
[2024-04-17] MEDS: OSELTAMIVIR PHOSPHATE 30 MG CAPSULE PO SCH (20:28)
[2024-04-18 05:17] VITALS: BP 111/52; PULSE 66; RESP 19; TEMP 97.8; O2SAT 95
[2024-04-18 07:36] LABS: C-REACTIVE PROTEIN QUANT 14.17 mg/dL (0.00-0.30); CALCIUM, TOTAL 7.3 mg/dL (8.8-10.5); CREATININE 2.03 mg/dL (0.60-1.30); POTASSIUM 3.3 mmol/L (3.5-5.1)
[2024-04-18] MEDS: POTASSIUM CHLORIDE 10 MEQ ER TABLET PO ONE (11:17)
[2024-04-18 12:01] VITALS: BP 142/54; PULSE 70; RESP 17; TEMP 98.7; O2SAT 94
[2024-04-18] MEDS: PEG 3350/NA SULF,BICARB,CL/KCL 4000 ML SOLUTION PO ONE (14:28)
[2024-04-18] MEDS: SODIUM CHLORIDE 0.9% 1,000 ML IV SCH (14:29)
[2024-04-18] MEDS: *CLINICAL-RX DOSING [ENTER DRUG IN COMMENTS] CLINICAL ONE (14:46)
[2024-04-18 20:08] VITALS: BP 113/51; PULSE 65; RESP 18; TEMP 97.9; O2SAT 95
[2024-04-19 05:55] VITALS: BP 138/62; PULSE 73; RESP 18; TEMP 98.4; O2SAT 96
[2024-04-19 08:00] LABS: CALCIUM, TOTAL 7.5 mg/dL (8.8-10.5); CREATININE 2.08 mg/dL (0.60-1.30); POTASSIUM 3.8 mmol/L (3.5-5.1)
[2024-04-19 08:06] VITALS: BP 148/63; PULSE 73; RESP 19; TEMP 98.9; O2SAT 96
[2024-04-19 08:09] LABS: C-REACTIVE PROTEIN QUANT 21.26 mg/dL (0.00-0.30)
[2024-04-19] MEDS: OSELTAMIVIR PHOSPHATE 30 MG CAPSULE PO SCH (08:28)
[2024-04-19] MEDS: PERMETHRIN 5% 60 GM CREAM TP SCH (08:29)
[2024-04-19] MEDS: DEXTROSE 5%-WATER 500 ML IV ONE (13:32)
[2024-04-19 15:27] LABS: APPEARANCE,URINE CLEAR (CLEAR); BILIRUBIN,URINE NEGATIVE (NEGATIVE); COLOR,URINE YELLOW (YELLOW); GLUCOSE, URINE (UA) NEGATIVE (NEGATIVE); KETONES,URINE NEGATIVE (NEGATIVE); LEUKOCYTE ESTERASE ,URINE TRACE (NEGATIVE); NITRATE,URINE NEGATIVE (NEGATIVE); OCCULT BLOOD,URINE TRACE (NEGATIVE); PH,URINE 5.5 (5.0-8.0); PROTEIN,URINE 30-70 mg/dL (NEGATIVE); SPECIFIC GRAVITIY, URINE 1.025 (1.003-1.030); UROBILINOGEN,URINE <=1.0 mg/dL (<=1.0)
[2024-04-19 15:30] LABS: CREATININE,URINE RANDOM 90.9 mg/dL (30.0-125.0); PROTEIN,URINE RANDOM 129 mg/dL (0-11.9); SODIUM,URINE RANDOM 100 mmol/l (20-110); UREA NITROGEN,URINE RANDOM 484 mg/dL (350-1000)
[2024-04-19 15:48] LABS: BACTERIA,URINE None Seen /HPF (None Seen); RBC,URINE 0-2 /HPF (0-2); SQUAMOUS EPITHELIAL CELL,UR None Seen /LPF (None Seen)
[2024-04-19] MEDS: SODIUM CHLORIDE 0.45% 1,000 ML IV SCH (16:07)
[2024-04-19] MEDS: PANTOPRAZOLE SODIUM 40 MG/VIAL IVP SCH (17:07)
[2024-04-19 18:38] LABS: BASOPHILS % (AUTO) 0.8 % (0.0-2.0); EOSINOPHILS % (AUTO) 0.8 % (1.0-6.0); HEMATOCRIT 25.3 % (41-53); HEMOGLOBIN 8.2 g/dL (13.5-17.5); LYMPHOCYTES % (AUTO) 12.2 % (22.0-44.0); MEAN CORPUSCULAR HEMOGLOBIN 28.8 pg (26.0-34.0); MEAN CORPUSCULAR HGB CONC 32.5 G/dL (31.0-37.0); MEAN CORPUSCULAR VOLUME 89 fL (80-100); MONOCYTES % (AUTO) 12.4 % (2.0-9.0); NEUTROPHILS # (AUTO) 5.8 K/uL (1.8-7.7); NEUTROPHILS % (AUTO) 73.8 % (40.0-70.0); PLATELET COUNT (AUTO) 256 K/uL (150-450); RED BLOOD CELL COUNT(AUTO) 2.86 MIL/uL (4.50-5.90); RED CELL DISTRIBUTION WIDTH 17.6 % (11.5-14.5); WHITE BLOOD COUNT (AUTO) 7.8 K/uL (4.5-11.0)
[2024-04-19 19:19] LABS: RBC MORPHOLOGY COMMENT ABNORMAL RBC MORPH
[2024-04-19] MEDS: ALBUTEROL SULFATE 2.5 MG/0.5 ML NEB SOLUTION NEB PRN (19:43)
[2024-04-19] MEDS: IPRATROPIUM BROMIDE 0.5 MG/2.5 ML NEB SOLUTION NEB PRN (19:43)
[2024-04-19 19:47] VITALS: PULSE 73; RESP 18; O2SAT 94
[2024-04-19 19:48] VITALS: PULSE 74; RESP 18; O2SAT 94
[2024-04-19 20:07] VITALS: BP 149/66; PULSE 87; RESP 18; TEMP 100.6; O2SAT 92
[2024-04-20] VITALS (10 sets, daily range): BP systolic 142–149; BP diastolic 67–89; PULSE 68–96; RESP 18–28; TEMP 97.5–99.8; O2SAT 90–96
[2024-04-20] MEDS: DiphenhydrAMINE HCL 50 MG/ML VIAL IVP ONE (08:00)
[2024-04-20 09:29] LABS: BASOPHILS % (AUTO) 0.5 % (0.0-2.0); EOSINOPHILS % (AUTO) 0.5 % (1.0-6.0); HEMATOCRIT 23.8 % (41-53); HEMOGLOBIN 7.9 g/dL (13.5-17.5); MEAN CORPUSCULAR HEMOGLOBIN 29.6 pg (26.0-34.0); MEAN CORPUSCULAR HGB CONC 33.1 G/dL (31.0-37.0); MEAN CORPUSCULAR VOLUME 89 fL (80-100); MONOCYTES # (AUTO) 1.1 K/uL (0.1-1.0); MONOCYTES % (AUTO) 10.5 % (2.0-9.0); NEUTROPHILS # (AUTO) 7.9 K/uL (1.8-7.7); NEUTROPHILS % (AUTO) 78.5 % (40.0-70.0); PLATELET COUNT (AUTO) 240 K/uL (150-450); RED BLOOD CELL COUNT(AUTO) 2.66 MIL/uL (4.50-5.90); RED CELL DISTRIBUTION WIDTH 17.7 % (11.5-14.5)
[2024-04-20 09:43] LABS: CALCIUM, TOTAL 7.3 mg/dL (8.8-10.5); CREATININE 2.19 mg/dL (0.60-1.30); MAGNESIUM 1.6 mg/dL (1.80-2.40); POTASSIUM 3.5 mmol/L (3.5-5.1)
[2024-04-20] MEDS: OSELTAMIVIR PHOSPHATE 30 MG CAPSULE PO SCH (11:04)
[2024-04-20] MEDS: MAGNESIUM OXIDE 400 MG TABLET PO ONE (12:34)
[2024-04-20] MEDS: DEXTROSE 5%-WATER 1,000 ML IV SCH (12:35)
[2024-04-20] MEDS: MAGNESIUM SULFATE 2 GM/WATER 50 ML IV ONE (16:35)
[2024-04-21] VITALS (24 sets, daily range): BP systolic 121–148; BP diastolic 55–88; PULSE 70–100; RESP 18–31; TEMP 96.7–98.7; O2SAT 89–100
[2024-04-21 07:44] LABS: CALCIUM, TOTAL 7.6 mg/dL (8.8-10.5); CREATININE 2.33 mg/dL (0.60-1.30); POTASSIUM 3.1 mmol/L (3.5-5.1)
[2024-04-21] MEDS ORDERED: BENZOCAINE/MENTHOL LOZENGE PO PRN (17:00)
[2024-04-21] MEDS: POTASSIUM CHL 10 MEQ/WATER 50 ML IV SCH (20:15)
[2024-04-21] MEDS: LINEZOLID 600 MG TABLET PO SCH (21:00)
[2024-04-21] MEDS: FUROSEMIDE 20 MG/2 ML VIAL IVP ONE (22:15)
[2024-04-21 22:48] LABS: ABG BASE EXCESS -1.9 mmol/L (-2.0-3.0); ABG CARBOXYHEMOGLOBIN 0.8 % (0.5-1.5); ABG HCO3 23.2 mmol/L (21.0-28.0); ABG METHEMOGLOBIN 0.3 % (0.0-1.5); ABG OXYGEN CONTENT 11.1 mL/dL (15.0-23.0); ABG OXYHEMOGLOBIN 94.9 % (94.0-98.0); ABG PCO2 32 mmHg (32.0-48.0); ABG TOTAL HEMOGLOBIN 8.2 G/dL (13.5-17.5); PO2, ARTERIAL BG 77.7 mmHg (83.0-108.0); SOURCE, BLOOD GAS ARTERIAL; TEMPERATURE, FAHRENHEIT, BG 98.4 FAHREN (96.0-98.6)
[2024-04-21 23:00] LABS: ABG A-A DIFF O2 200.2 mmHg (10-20.0); ALLEN TEST, BLOOD GAS Positive; O2 DEVICE,BLOOD GAS NASAL CANNULA (ROOM AIR); SITE, BLOOD GAS RT RADIAL
[2024-04-21] MEDS: ALBUTEROL SULFATE 2.5 MG/0.5 ML 5 ML NEB SOLUTION NEB ONE (23:48)
[2024-04-22] VITALS (11 sets, daily range): BP systolic 106–145; BP diastolic 60–81; PULSE 61–103; RESP 18–32; TEMP 97.3–99.6; O2SAT 90–100
[2024-04-22] MEDS: MethylPREDNISolone SOD SUCC 125 MG/2 ML VIAL IVP ONE (00:26)
[2024-04-22] MEDS: POTASSIUM CHL 10 MEQ/WATER 50 ML IV PRN (01:11)
[2024-04-22 07:19] LABS: BASOPHILS % (AUTO) 0.1 % (0.0-2.0); EOSINOPHILS % (AUTO) 0 % (1.0-6.0); HEMOGLOBIN 7.7 g/dL (13.5-17.5); LYMPHOCYTES # (AUTO) 0.2 K/uL (1.0-4.8); LYMPHOCYTES % (AUTO) 1.4 % (22.0-44.0); MEAN CORPUSCULAR HEMOGLOBIN 28.7 pg (26.0-34.0); MEAN CORPUSCULAR HGB CONC 32.2 G/dL (31.0-37.0); MEAN CORPUSCULAR VOLUME 89 fL (80-100); MONOCYTES # (AUTO) 0.3 K/uL (0.1-1.0); MONOCYTES % (AUTO) 1.8 % (2.0-9.0); NEUTROPHILS # (AUTO) 16.4 K/uL (1.8-7.7); PLATELET COUNT (AUTO) 201 K/uL (150-450); RED CELL DISTRIBUTION WIDTH 17.8 % (11.5-14.5); WHITE BLOOD COUNT (AUTO) 16.9 K/uL (4.5-11.0)
[2024-04-22 07:28] LABS: NEUTROPHILS % (AUTO) 96.7 % (40.0-70.0)
[2024-04-22 08:01] LABS: ALBUMIN 1.2 g/dL (3.4-5.0); BILIRUBIN,TOTAL 0.6 mg/dL (0.1-1.0); CALCIUM, TOTAL 7.6 mg/dL (8.8-10.5); CREATININE 2.36 mg/dL (0.60-1.30); MAGNESIUM 2.1 mg/dL (1.80-2.40); POTASSIUM 4.2 mmol/L (3.5-5.1); TOTAL PROTEIN, SERUM 6.2 g/dL (6.4-8.2)
[2024-04-22] MEDS: MethylPREDNISolone SOD SUCC 125 MG/2 ML VIAL IVP SCH (10:09)
[2024-04-22] MEDS: LINEZOLID 600 MG/ISO-OSM 300 ML IV SCH (17:36)
[2024-04-23] VITALS (11 sets, daily range): BP systolic 107–153; BP diastolic 55–73; PULSE 57–82; RESP 16–24; TEMP 97.5–98; O2SAT 92–99
[2024-04-23] MEDS: IVERMECTIN 3 MG TABLET PO ONE (16:23)
[2024-04-23 19:07] LABS: APPEARANCE,URINE HAZY (CLEAR); BILIRUBIN,URINE NEGATIVE (NEGATIVE); COLOR,URINE LIGHT YELLOW (YELLOW); GLUCOSE, URINE (UA) NEGATIVE (NEGATIVE); KETONES,URINE TRACE mg/dL (NEGATIVE); LEUKOCYTE ESTERASE ,URINE NEGATIVE (NEGATIVE); NITRATE,URINE NEGATIVE (NEGATIVE); OCCULT BLOOD,URINE NEGATIVE (NEGATIVE); PH,URINE 5.5 (5.0-8.0); PROTEIN,URINE 30-70 mg/dL (NEGATIVE); SPECIFIC GRAVITIY, URINE 1.025 (1.003-1.030); UROBILINOGEN,URINE <=1.0 mg/dL (<=1.0)
[2024-04-23 19:23] LABS: BACTERIA,URINE Rare /HPF (None Seen); RBC,URINE 0-2 /HPF (0-2); WBC,URINE 0-2 /HPF (0-5)
[2024-04-24 03:45] VITALS: BP 110/57; PULSE 54; RESP 19; TEMP 97.8; O2SAT 94
[2024-04-24 07:07] LABS: BASOPHILS % (AUTO) 0.1 % (0.0-2.0); EOSINOPHILS % (AUTO) 0 % (1.0-6.0); HEMATOCRIT 24.9 % (41-53); LYMPHOCYTES # (AUTO) 0.5 K/uL (1.0-4.8); LYMPHOCYTES % (AUTO) 4.9 % (22.0-44.0); MEAN CORPUSCULAR HEMOGLOBIN 28.7 pg (26.0-34.0); MEAN CORPUSCULAR VOLUME 90 fL (80-100); MONOCYTES # (AUTO) 0.4 K/uL (0.1-1.0); NEUTROPHILS # (AUTO) 9.3 K/uL (1.8-7.7); PLATELET COUNT (AUTO) 238 K/uL (150-450); RED BLOOD CELL COUNT(AUTO) 2.78 MIL/uL (4.50-5.90); RED CELL DISTRIBUTION WIDTH 17.7 % (11.5-14.5); WHITE BLOOD COUNT (AUTO) 10.2 K/uL (4.5-11.0)
[2024-04-24 07:17] LABS: C-REACTIVE PROTEIN QUANT 12.02 mg/dL (0.00-0.30); CALCIUM, TOTAL 7.5 mg/dL (8.8-10.5); CREATININE 2.42 mg/dL (0.60-1.30); POTASSIUM 3.9 mmol/L (3.5-5.1)
[2024-04-24 08:21] VITALS: BP 136/65; PULSE 56; PULSE 60; RESP 18; TEMP 97.6; O2SAT 97; O2SAT 98
[2024-04-24 16:00] VITALS: BP 111/59; PULSE 55; RESP 16; TEMP 98.1; O2SAT 98
[2024-04-24] MEDS: IVERMECTIN 3 MG TABLET PO ONE (17:38)
[2024-04-24 20:01] VITALS: BP 115/58; PULSE 56; RESP 18; TEMP 97.6; O2SAT 95
[2024-04-24 20:40] VITALS: PULSE 50; RESP 20; O2SAT 96
[2024-04-25] VITALS (7 sets, daily range): BP systolic 93–125; BP diastolic 49–58; PULSE 50–53; RESP 18–20; TEMP 95.9–98; O2SAT 93–97
[2024-04-25 07:09] LABS: CALCIUM, TOTAL 7.6 mg/dL (8.8-10.5); CREATININE 2.61 mg/dL (0.60-1.30); POTASSIUM 3.6 mmol/L (3.5-5.1)
[2024-04-26 00:18] VITALS: BP 111/52; PULSE 51; RESP 18; TEMP 96.2; O2SAT 99
[2024-04-26 05:41] VITALS: BP 118/53; PULSE 52; RESP 18; TEMP 97.5; O2SAT 97
[2024-04-26 07:06] LABS: BASOPHILS % (AUTO) 0.1 % (0.0-2.0); EOSINOPHILS % (AUTO) 0.1 % (1.0-6.0); HEMOGLOBIN 7.1 g/dL (13.5-17.5); LYMPHOCYTES # (AUTO) 0.5 K/uL (1.0-4.8); LYMPHOCYTES % (AUTO) 5.5 % (22.0-44.0); MEAN CORPUSCULAR HEMOGLOBIN 29.7 pg (26.0-34.0); MEAN CORPUSCULAR HGB CONC 33.9 G/dL (31.0-37.0); MEAN CORPUSCULAR VOLUME 88 fL (80-100); MONOCYTES % (AUTO) 10.2 % (2.0-9.0); NEUTROPHILS % (AUTO) 84.1 % (40.0-70.0); PLATELET COUNT (AUTO) 302 K/uL (150-450); WHITE BLOOD COUNT (AUTO) 9.5 K/uL (4.5-11.0)
[2024-04-26 07:15] LABS: C-REACTIVE PROTEIN QUANT 5.15 mg/dL (0.00-0.30); CREATININE 3.03 mg/dL (0.60-1.30); PHOSPHORUS 4.3 mg/dL (2.5-4.9)
[2024-04-26 08:16] VITALS: BP 128/52; PULSE 56; RESP 18; TEMP 97.5; O2SAT 95
[2024-04-26 11:45] VITALS: BP 119/53; PULSE 52; RESP 17; TEMP 97.1; O2SAT 95
[2024-04-26] MEDS: POTASSIUM CHLORIDE 10% 40 MEQ/30 ML LIQUID UDCUP PO ONE (13:34)
[2024-04-26 16:07] VITALS: BP 125/51; PULSE 54; RESP 19; TEMP 97; O2SAT 96
[2024-04-26] MEDS: PredniSONE 20 MG TABLET PO ONE (17:32)
[2024-04-26 20:01] VITALS: BP 123/56; PULSE 65; RESP 16; TEMP 97.6; O2SAT 95
[2024-04-27] VITALS (14 sets, daily range): BP systolic 121–151; BP diastolic 47–79; PULSE 61–69; RESP 18–19; TEMP 97.6–98.1; O2SAT 90–97
[2024-04-27 08:40] LABS: BASOPHILS % (AUTO) 0.1 % (0.0-2.0); EOSINOPHILS % (AUTO) 0 % (1.0-6.0); LYMPHOCYTES # (AUTO) 0.4 K/uL (1.0-4.8); LYMPHOCYTES % (AUTO) 3.8 % (22.0-44.0); MEAN CORPUSCULAR HEMOGLOBIN 29.3 pg (26.0-34.0); MEAN CORPUSCULAR HGB CONC 33.5 G/dL (31.0-37.0); MEAN CORPUSCULAR VOLUME 87 fL (80-100); MONOCYTES # (AUTO) 0.3 K/uL (0.1-1.0); MONOCYTES % (AUTO) 3.2 % (2.0-9.0); NEUTROPHILS # (AUTO) 8.8 K/uL (1.8-7.7); PLATELET COUNT (AUTO) 322 K/uL (150-450); RED BLOOD CELL COUNT(AUTO) 2.26 MIL/uL (4.50-5.90); WHITE BLOOD COUNT (AUTO) 9.4 K/uL (4.5-11.0)
[2024-04-27 08:55] LABS: CALCIUM, TOTAL 7.1 mg/dL (8.8-10.5); CREATININE 3.24 mg/dL (0.60-1.30); PHOSPHORUS 3.4 mg/dL (2.5-4.9)
[2024-04-27 08:58] LABS: HEMATOCRIT 19.8 % (41-53); HEMOGLOBIN 6.6 g/dL (13.5-17.5); NEUTROPHILS % (AUTO) 92.9 % (40.0-70.0)
[2024-04-27] MEDS ORDERED: SODIUM CHLORIDE 0.9% 1,000 ML ONE (11:14)
[2024-04-27] MEDS: PIPERACILLIN SODIUM/TAZOBACTAM 2.25 GM in DEXTROSE 5%-WATER 50 ML IV SCH (16:13)
[2024-04-27 17:09] LABS: C.DIFF GDH ANTIGEN, Stool Negative (Negative)
[2024-04-27 17:10] LABS: C.DIFF TOXINS A&B, Stool Negative (Negative)
[2024-04-27] MEDS: DiphenhydrAMINE HCL 50 MG/ML VIAL IVP ONE (21:08)
[2024-04-28] VITALS (7 sets, daily range): BP systolic 138–153; BP diastolic 59–73; PULSE 61–86; RESP 18–20; TEMP 96.2–97.8; O2SAT 92–97
[2024-04-28 07:57] LABS: BASOPHILS % (AUTO) 0.2 % (0.0-2.0); EOSINOPHILS % (AUTO) 0.1 % (1.0-6.0); HEMATOCRIT 23.6 % (41-53); HEMOGLOBIN 7.8 g/dL (13.5-17.5); LYMPHOCYTES # (AUTO) 0.6 K/uL (1.0-4.8); LYMPHOCYTES % (AUTO) 4.1 % (22.0-44.0); MEAN CORPUSCULAR HGB CONC 33.1 G/dL (31.0-37.0); MEAN CORPUSCULAR VOLUME 88 fL (80-100); MONOCYTES # (AUTO) 1.6 K/uL (0.1-1.0); MONOCYTES % (AUTO) 11.1 % (2.0-9.0); NEUTROPHILS # (AUTO) 12.2 K/uL (1.8-7.7); NEUTROPHILS % (AUTO) 84.5 % (40.0-70.0); PLATELET COUNT (AUTO) 375 K/uL (150-450); RED BLOOD CELL COUNT(AUTO) 2.69 MIL/uL (4.50-5.90); RED CELL DISTRIBUTION WIDTH 16.6 % (11.5-14.5); WHITE BLOOD COUNT (AUTO) 14.5 K/uL (4.5-11.0)
[2024-04-28 08:08] LABS: ALBUMIN 1.2 g/dL (3.4-5.0); BILIRUBIN,TOTAL 0.4 mg/dL (0.1-1.0); C-REACTIVE PROTEIN QUANT 3.2 mg/dL (0.00-0.30); CALCIUM, TOTAL 7.3 mg/dL (8.8-10.5); CREATININE 3.28 mg/dL (0.60-1.30); POTASSIUM 3.6 mmol/L (3.5-5.1); TOTAL PROTEIN, SERUM 5.4 g/dL (6.4-8.2)
[2024-04-29 00:17] VITALS: BP 147/63; PULSE 57; RESP 17; TEMP 97.3; O2SAT 98
[2024-04-29 04:44] VITALS: BP 152/76; PULSE 60; RESP 18; TEMP 97.6; O2SAT 98
[2024-04-29 07:17] LABS: BASOPHILS % (AUTO) 0.1 % (0.0-2.0); EOSINOPHILS % (AUTO) 0.1 % (1.0-6.0); HEMATOCRIT 24.2 % (41-53); HEMOGLOBIN 8.1 g/dL (13.5-17.5); LYMPHOCYTES # (AUTO) 0.5 K/uL (1.0-4.8); LYMPHOCYTES % (AUTO) 4.6 % (22.0-44.0); MEAN CORPUSCULAR HEMOGLOBIN 29.7 pg (26.0-34.0); MEAN CORPUSCULAR HGB CONC 33.5 G/dL (31.0-37.0); MEAN CORPUSCULAR VOLUME 89 fL (80-100); MONOCYTES # (AUTO) 1.2 K/uL (0.1-1.0); MONOCYTES % (AUTO) 11.3 % (2.0-9.0); NEUTROPHILS # (AUTO) 9.2 K/uL (1.8-7.7); NEUTROPHILS % (AUTO) 83.9 % (40.0-70.0); PLATELET COUNT (AUTO) 359 K/uL (150-450); RED BLOOD CELL COUNT(AUTO) 2.73 MIL/uL (4.50-5.90); RED CELL DISTRIBUTION WIDTH 16.6 % (11.5-14.5)
[2024-04-29 07:39] LABS: CALCIUM, TOTAL 7.3 mg/dL (8.8-10.5); CREATININE 3.14 mg/dL (0.60-1.30); MAGNESIUM 1.9 mg/dL (1.80-2.40); PHOSPHORUS 3.3 mg/dL (2.5-4.9)
[2024-04-29 08:26] VITALS: BP 132/65; PULSE 55; RESP 17; TEMP 98.2; O2SAT 94
[2024-04-29 11:47] VITALS: BP 127/61; PULSE 55; RESP 17; TEMP 97.8; O2SAT 97
[2024-04-29 16:27] VITALS: BP 122/67; PULSE 54; RESP 17; TEMP 98.5; O2SAT 98
[2024-04-29 20:20] VITALS: BP 154/53; PULSE 62; RESP 19; TEMP 97.6; O2SAT 95
[2024-04-30 00:01] VITALS: BP 147/71; PULSE 59; RESP 18; TEMP 97.8; O2SAT 98
[2024-04-30 04:30] VITALS: BP 146/65; PULSE 58; RESP 19; TEMP 98; O2SAT 97
[2024-04-30 08:04] VITALS: BP 149/71; PULSE 58; RESP 18; TEMP 97.1; O2SAT 97
[2024-04-30 08:11] LABS: CALCIUM, TOTAL 7.8 mg/dL (8.8-10.5); CREATININE 3.11 mg/dL (0.60-1.30); PHOSPHORUS 3.5 mg/dL (2.5-4.9); POTASSIUM 4.4 mmol/L (3.5-5.1)
[2024-04-30 08:17] LABS: HEMOGLOBIN 8.7 g/dL (13.5-17.5); MEAN CORPUSCULAR HEMOGLOBIN 28.9 pg (26.0-34.0); MEAN CORPUSCULAR HGB CONC 32.4 G/dL (31.0-37.0); MEAN CORPUSCULAR VOLUME 89 fL (80-100); PLATELET COUNT (AUTO) 386 K/uL (150-450); RED BLOOD CELL COUNT(AUTO) 3.03 MIL/uL (4.50-5.90); RED CELL DISTRIBUTION WIDTH 17.2 % (11.5-14.5); WHITE BLOOD COUNT (AUTO) 14.5 K/uL (4.5-11.0)
[2024-04-30 08:25] LABS: BAND NEUTROPHILS % (MANUAL) 0 % (0-5)
[2024-04-30 09:26] LABS: LYMPHOCYTES % (MANUAL) 12 % (22-44); MONOCYTES % (MANUAL) 5 % (2-9); RBC MORPHOLOGY COMMENT NORMAL RBC MORPH; SEGMENTED NEUTROPHILS % 83 % (40-70); TOTAL CELLS COUNTED 100
[2024-04-30 11:20] VITALS: BP 130/75; PULSE 58; RESP 16; TEMP 97.5; O2SAT 96
[2024-04-30 13:29] LABS: SPECIMENTYPE,BODY FLUID THORAV
[2024-04-30 15:23] LABS: APPEARANCE,SPUN,BODY FLUID HAZY (CLEAR); BASOPHILS,BODY FLUID 0 %; BODY FLUID RBC 46.7 /cu. mm.; COLOR,BODY FLUID YELLOW (LT YELLOW); EOSINOPHILS,BF (ANAL) 0 %; LYMPHOCYTES,BODY FLUID 64 %; MONOCYTES,BODY FLUID 18 %; NEUTROPHILS,BODY FLUID 18 %; TOTAL VOLUME,BODY FLUID 650 mL; WBC, BODY FLUID 13.89 /cu. mm.
[2024-04-30 15:25] LABS: APPEARANCE,UNSPUN,BODY FLUID CLOUDY (CLEAR)
[2024-04-30 16:02] VITALS: BP 141/64; PULSE 59; RESP 18; TEMP 97.3; O2SAT 96
[2024-04-30] MEDS ORDERED: IVERMECTIN 3 MG TABLET PO ONE (17:00)
[2024-04-30 20:26] VITALS: BP 161/64; PULSE 57; RESP 18; TEMP 97.7; O2SAT 98
[2024-05-01] VITALS (9 sets, daily range): BP systolic 135–145; BP diastolic 58–68; PULSE 50–62; RESP 16–20; TEMP 97.1–97.6; O2SAT 90–99
[2024-05-01 06:56] LABS: HEMATOCRIT 28.5 % (41-53); HEMOGLOBIN 9.2 g/dL (13.5-17.5); MEAN CORPUSCULAR HEMOGLOBIN 28.8 pg (26.0-34.0); MEAN CORPUSCULAR HGB CONC 32.3 G/dL (31.0-37.0); MEAN CORPUSCULAR VOLUME 89 fL (80-100); PLATELET COUNT (AUTO) 405 K/uL (150-450); RED CELL DISTRIBUTION WIDTH 16.7 % (11.5-14.5); WHITE BLOOD COUNT (AUTO) 12.8 K/uL (4.5-11.0)
[2024-05-01 06:58] LABS: CALCIUM, TOTAL 7.8 mg/dL (8.8-10.5); CREATININE 3.07 mg/dL (0.60-1.30); POTASSIUM 4.2 mmol/L (3.5-5.1)
[2024-05-01 07:46] LABS: BAND NEUTROPHILS % (MANUAL) 0 % (0-5)
[2024-05-01 10:21] LABS: LYMPHOCYTES % (MANUAL) 9 % (22-44); MONOCYTES % (MANUAL) 5 % (2-9); SEGMENTED NEUTROPHILS % 86 % (40-70); TOTAL CELLS COUNTED 100
[2024-05-01 10:22] LABS: RBC MORPHOLOGY COMMENT NORMAL RBC MORPH
[2024-05-02] VITALS (7 sets, daily range): BP systolic 112–156; BP diastolic 59–68; PULSE 57–64; RESP 17–18; TEMP 97.4–98.1; O2SAT 93–98
[2024-05-02 08:00] LABS: BASOPHILS % (AUTO) 0.1 % (0.0-2.0); EOSINOPHILS % (AUTO) 0.3 % (1.0-6.0); HEMATOCRIT 26.2 % (41-53); HEMOGLOBIN 8.5 g/dL (13.5-17.5); LYMPHOCYTES # (AUTO) 0.7 K/uL (1.0-4.8); LYMPHOCYTES % (AUTO) 4.5 % (22.0-44.0); MEAN CORPUSCULAR HEMOGLOBIN 28.5 pg (26.0-34.0); MEAN CORPUSCULAR HGB CONC 32.3 G/dL (31.0-37.0); MEAN CORPUSCULAR VOLUME 88 fL (80-100); MONOCYTES # (AUTO) 1.2 K/uL (0.1-1.0); MONOCYTES % (AUTO) 7.3 % (2.0-9.0); NEUTROPHILS # (AUTO) 14.7 K/uL (1.8-7.7); PLATELET COUNT (AUTO) 328 K/uL (150-450); RED BLOOD CELL COUNT(AUTO) 2.97 MIL/uL (4.50-5.90); RED CELL DISTRIBUTION WIDTH 16.6 % (11.5-14.5); WHITE BLOOD COUNT (AUTO) 16.7 K/uL (4.5-11.0)
[2024-05-02 08:08] LABS: NEUTROPHILS % (AUTO) 87.8 % (40.0-70.0)
[2024-05-02 08:11] LABS: C-REACTIVE PROTEIN QUANT 1.45 mg/dL (0.00-0.30); CALCIUM, TOTAL 7.6 mg/dL (8.8-10.5); CREATININE 3.04 mg/dL (0.60-1.30); MAGNESIUM 1.7 mg/dL (1.80-2.40); PHOSPHORUS 2.7 mg/dL (2.5-4.9); POTASSIUM 3.6 mmol/L (3.5-5.1)
[2024-05-03 00:27] VITALS: BP 160/72; PULSE 60; RESP 18; TEMP 97.8; O2SAT 94
[2024-05-03 05:46] VITALS: BP 168/81; PULSE 59; RESP 18; TEMP 98.8; O2SAT 97
[2024-05-03 07:56] LABS: BASOPHILS % (AUTO) 0.1 % (0.0-2.0); EOSINOPHILS % (AUTO) 0.1 % (1.0-6.0); HEMATOCRIT 22.9 % (41-53); HEMOGLOBIN 7.5 g/dL (13.5-17.5); LYMPHOCYTES # (AUTO) 0.6 K/uL (1.0-4.8); LYMPHOCYTES % (AUTO) 5.3 % (22.0-44.0); MEAN CORPUSCULAR HEMOGLOBIN 28.8 pg (26.0-34.0); MEAN CORPUSCULAR HGB CONC 32.6 G/dL (31.0-37.0); MEAN CORPUSCULAR VOLUME 89 fL (80-100); MONOCYTES # (AUTO) 0.6 K/uL (0.1-1.0); MONOCYTES % (AUTO) 5.3 % (2.0-9.0); NEUTROPHILS # (AUTO) 9.3 K/uL (1.8-7.7); PLATELET COUNT (AUTO) 247 K/uL (150-450); RED BLOOD CELL COUNT(AUTO) 2.59 MIL/uL (4.50-5.90); RED CELL DISTRIBUTION WIDTH 16.7 % (11.5-14.5); WHITE BLOOD COUNT (AUTO) 10.5 K/uL (4.5-11.0)
[2024-05-03 08:13] LABS: NEUTROPHILS % (AUTO) 89.2 % (40.0-70.0)
[2024-05-03 08:39] VITALS: BP 139/66; PULSE 55; RESP 17; TEMP 97.3; O2SAT 95
[2024-05-03] MEDS: DEXTROSE 5%-WATER 1,000 ML IV SCH (11:46)
[2024-05-03 12:07] VITALS: BP 138/55; PULSE 51; RESP 17; TEMP 97.5; O2SAT 98
[2024-05-03 18:09] LABS: CREATININE,URINE 59.1 mg/dL (30.0-125.0)
[2024-05-03 18:11] LABS: CREATININE,SERUM FOR CRCL 3.04 mg/dL (0.60-1.30)
[2024-05-03 20:00] VITALS: BP 139/54; PULSE 53; RESP 18; TEMP 97.1; O2SAT 98
[2024-05-04 00:55] VITALS: BP 127/51; PULSE 52; RESP 17; TEMP 97.5; O2SAT 98
[2024-05-04 04:20] VITALS: BP 136/59; PULSE 53; RESP 18; TEMP 97.5; O2SAT 98
[2024-05-04] MEDS: LACTOBAC ACID/BULG/BIFID/THERM TABLET PO SCH (07:59)
[2024-05-04 09:30] VITALS: BP 139/59; PULSE 55; RESP 18; TEMP 98.6; O2SAT 97
[2024-05-04 11:40] VITALS: BP 133/67; PULSE 54; RESP 18; TEMP 97.8; O2SAT 96
[2024-05-04 15:55] VITALS: BP 130/57; PULSE 58; RESP 18; TEMP 97.5; O2SAT 100
[2024-05-04 20:26] VITALS: BP 132/63; PULSE 64; RESP 18; TEMP 97.9; O2SAT 98
[2024-05-05 00:30] VITALS: BP 134/62; PULSE 68; RESP 19; TEMP 98.5; O2SAT 98
[2024-05-05 04:44] VITALS: BP 139/64; PULSE 69; RESP 20; TEMP 98.8; O2SAT 96
[2024-05-05 07:25] LABS: BASOPHILS % (AUTO) 0.1 % (0.0-2.0); EOSINOPHILS % (AUTO) 3.5 % (1.0-6.0); HEMATOCRIT 24.9 % (41-53); HEMOGLOBIN 8.1 g/dL (13.5-17.5); LYMPHOCYTES # (AUTO) 0.6 K/uL (1.0-4.8); LYMPHOCYTES % (AUTO) 4.2 % (22.0-44.0); MEAN CORPUSCULAR HEMOGLOBIN 28.5 pg (26.0-34.0); MEAN CORPUSCULAR HGB CONC 32.4 G/dL (31.0-37.0); MEAN CORPUSCULAR VOLUME 88 fL (80-100); MONOCYTES # (AUTO) 0.6 K/uL (0.1-1.0); MONOCYTES % (AUTO) 4.2 % (2.0-9.0); NEUTROPHILS # (AUTO) 11.8 K/uL (1.8-7.7); PLATELET COUNT (AUTO) 164 K/uL (150-450); RED BLOOD CELL COUNT(AUTO) 2.83 MIL/uL (4.50-5.90); RED CELL DISTRIBUTION WIDTH 16.6 % (11.5-14.5); WHITE BLOOD COUNT (AUTO) 13.4 K/uL (4.5-11.0)
[2024-05-05 07:32] LABS: CALCIUM, TOTAL 7.6 mg/dL (8.8-10.5); CREATININE 2.74 mg/dL (0.60-1.30); POTASSIUM 3.9 mmol/L (3.5-5.1)
[2024-05-05 08:00] VITALS: BP 151/73; PULSE 78; RESP 18; TEMP 99.1; O2SAT 96
[2024-05-05 12:00] VITALS: BP 131/51; PULSE 68; RESP 18; TEMP 97.8; O2SAT 95
[2024-05-05 15:30] VITALS: BP 125/57; PULSE 61; RESP 18; TEMP 97.8; O2SAT 93
[2024-05-05 20:27] VITALS: BP 134/61; PULSE 72; RESP 18; TEMP 98.1; O2SAT 93
[2024-05-06 00:18] VITALS: BP 126/53; PULSE 61; RESP 17; TEMP 98.1; O2SAT 94
[2024-05-06 04:33] VITALS: BP 140/61; PULSE 68; RESP 18; TEMP 98.5; O2SAT 94
[2024-05-06 08:30] VITALS: BP 136/55; PULSE 80; RESP 18; TEMP 99.4; O2SAT 93
[2024-05-06 12:06] VITALS: BP 137/57; PULSE 75; RESP 18; TEMP 98.2; O2SAT 92
[2024-05-06 16:10] VITALS: BP 128/56; PULSE 75; RESP 18; TEMP 98.5; O2SAT 94
[2024-05-07] MEDS ORDERED: IVERMECTIN 3 MG TABLET PO ONE (17:00)
[2024-05-14] MEDS ORDERED: IVERMECTIN 3 MG TABLET PO ONE (17:00)
== END 2024-05-06 16:10 | DRG 720 ==
LOC: EMS 10:35 → EDH 13:03 → ICU 20:10 → 5N 03-22 06:25 → 4E 03-30 18:41 → 5N 04-01 01:07 → 6S 04-05 23:09 → 5S 04-21 21:43
PROVIDERS: ADMIT Hospitalist; ATTEND Hospitalist
PROC: 05HB33Z Insertion of Infusion Device into Right Basilic Vein, Percutaneous Approach (ICD-10-PCS; principal; 2024-03-19)
PROC: B54MZZA Ultrasonography of Right Upper Extremity Veins, Guidance (ICD-10-PCS; 2024-03-19)
PROC: 0S9C3ZX Drainage of Right Knee Joint, Percutaneous Approach, Diagnostic (ICD-10-PCS; 2024-03-28)
PROC: 30233N1 Transfusion of Nonautologous Red Blood Cells into Peripheral Vein, Percutaneous Approach (ICD-10-PCS; 2024-04-03)
PROC: 30233K1 Transfusion of Nonautologous Frozen Plasma into Peripheral Vein, Percutaneous Approach (ICD-10-PCS; 2024-04-03)
PROC: 0DJD8ZZ Inspection of Lower Intestinal Tract, Via Natural or Artificial Opening Endoscopic (ICD-10-PCS; 2024-04-04)
PROC: 0JBN3ZX Excision of Right Lower Leg Subcutaneous Tissue and Fascia, Percutaneous Approach, Diagnostic (ICD-10-PCS; 2024-04-09)
PROC: 5A0945A Assistance with Respiratory Ventilation, 24-96 Consecutive Hours, High Flow/Velocity Cannula (ICD-10-PCS; 2024-04-21)
PROC: 0W993ZZ Drainage of Right Pleural Cavity, Percutaneous Approach (ICD-10-PCS; 2024-04-30)
DX: A41.9 Sepsis, unspecified organism (principal); J96.00 Acute respiratory failure, unspecified whether with hypoxia or hypercapnia; J10.08 Influenza due to other identified influenza virus with other specified pneumonia; N17.9 Acute kidney failure, unspecified; E44.0 Moderate protein-calorie malnutrition; E87.20 Acidosis, unspecified; K57.31 Diverticulosis of large intestine without perforation or abscess with bleeding; M60.003 Infective myositis, unspecified right leg; E87.0 Hyperosmolality and hypernatremia; J90 Pleural effusion, not elsewhere classified; J15.9 Unspecified bacterial pneumonia; D63.8 Anemia in other chronic diseases classified elsewhere; N18.4 Chronic kidney disease, stage 4 (severe); E88.09 Other disorders of plasma-protein metabolism, not elsewhere classified; I48.0 Paroxysmal atrial fibrillation; Z20.822 Contact with and (suspected) exposure to COVID-19; L03.115 Cellulitis of right lower limb; I48.91 Unspecified atrial fibrillation; D75.839 Thrombocytosis, unspecified; Z85.46 Personal history of malignant neoplasm of prostate; I12.9 Hypertensive chronic kidney disease with stage 1 through stage 4 chronic kidney disease, or unspecified chronic kidney disease; L29.9 Pruritus, unspecified; E83.42 Hypomagnesemia; E87.6 Hypokalemia; I35.0 Nonrheumatic aortic (valve) stenosis; K62.7 Radiation proctitis; E86.9 Volume depletion, unspecified; J10.1 Influenza due to other identified influenza virus with other respiratory manifestations; N40.0 Benign prostatic hyperplasia without lower urinary tract symptoms; E78.5 Hyperlipidemia, unspecified; B86 Scabies; R65.20 Severe sepsis without septic shock; J98.11 Atelectasis; Z68.20 Body mass index [BMI] 20.0-20.9, adult; M86.8X6 Other osteomyelitis, lower leg; B85.2 Pediculosis, unspecified; F17.200 Nicotine dependence, unspecified, uncomplicated; Z79.899 Other long term (current) drug therapy; Z92.3 Personal history of irradiation; R26.2 Difficulty in walking, not elsewhere classified; E83.39 Other disorders of phosphorus metabolism; E87.1 Hypo-osmolality and hyponatremia
CPT/HCPCS: 0241U; 32555; 36245; 36569; 71045; 71250; 73700; 73718; 73723; 74018; 75989; 76770; 76937; 76942; 80048; 80053; 80076; 80202; 81001; 81003; 81050; 82271; 82465; 82550; 82570; 82575; 82805; 82945; 83605; 83615; 83735; 83880; 83986; 84100; 84132; 84145; 84156; 84157; 84300; 84443; 84484; 84540; 84550; 85014; 85018; 85025; 85610; 85730; 86140; 86850; 86900; 86901; 86923; 86927; 87015; 87040; 87070; 87075; 87081; 87086; 87101; 87205; 87206; 87324; 87449; 87481; 87804; 88307; 88312; 88342; 89051; 89060; 92526; 92610; 93005; 93306; 93925; 93971; 94640; 94799; 97110; 97162; 97164; 97530; 99291; G0378; J0171; J0282; J0461; J0878; J1200; J1644; J1940; J2020; J2060; J2250; J2270; J2310; J2370; J2470; J2543; J2704; J2919; J3010; J3370; J3475; J3480; J3490; J7030; J7040; J7050; J7060; P9016; P9017; P9046; 36415-L1; 36415-TC; J7613